=== PATIENT | male | born 1955 | race Caucasian/White ===

== ENCOUNTER 2017-04-20 08:30 | Observation (INO) ==
--- OUTSIDE RECORDS SUMMARY | 2017-04-20 09:02 | External Medical Summary | Referral Summary ---
:1955 Author Organization [facility] Address [address] [place] [address] Care Team Providers Name Role Phone De La CruzJt mills Primary Care Physician Encounter VC Date(s): 07/30/15 - 07/30/15 [facility] [address] [place] [address]- [phone] Discharge Diagnosis: Spinal stenosis of lumbar region (disorder) Discharge Diagnosis: Lumbar disc herniation Discharge Diagnosis: Low back pain (finding) Discharge Diagnosis: Disc degeneration, lumbar Discharge Diagnosis: Lumbosacral spondylosis without myelopathy (disorder) Discharge Disposition: 01-Home or Self Care Attending Physician: Noe Null Admitting Physician: Noe Null Vital Signs Most recent to oldest [Reference Range]: 1 Blood Pressure [90-140/60-90 mmHg] 134/82 mmHg (07/30/15 7:53 AM) Problem List Condition Effective Dates Status Health Status Informant Acquired spondylolisthesis Active (disorder)(Confirmed) Allergic rhinitis(Confirmed) Active Hay fever(Confirmed) Active DDD (degenerative disc 2010 Active disease)(Confirmed) Disc degeneration, lumbar(Confirmed) Active Left L4-5/L5-S1 Facet(Confirmed) 05/28/13 Active High cholesterol(Confirmed) Active Hyperlipidemia(Confirmed) Active Hypertension(Confirmed) Active Irregular heart rhythm(Confirmed)1 Active Low back pain (finding)(Confirmed) Active Lumbar spondylosis(Confirmed) Active Lumbosacral radiculopathy(Confirmed) Active Lumbosacral spondylosis without Active myelopathy (disorder)(Confirmed) Lumbar disc herniation(Confirmed) Active Spinal stenosis of lumbar region 2010 Active (disorder)(Confirmed) 1sees Dr. Rizzo Allergies, Adverse Reactions, Alerts Substance Reaction Severity Status niacin Active oxyCODONE DIZZY Active Medications atenolol 50 mg oral tablet 50 mg 1 tabs, Oral, Daily, # 90 tabs, 3 Refill(s), Pharmacy: [facility], 1 tabsOral Daily Start Date: 06/03/15 Status: Orderedatenolol-chlorthalidone 50 mg-25 mg oral tablet See Instructions, 0.5 tabs Oral Daily., # 45 tabs, 3 Refill(s), Pharmacy: [facility] Start Date: 06/03/15 Status: OrderedFish Oil 1,000 mg, Oral, Daily, 0 Refill(s) Start Date: 12/13/13 Status: Orderedfolic acid 1 mg, Oral, Daily, 0 Refill(s) Start Date: 03/27/14 Status: Orderedglucosamine 500 mg, Oral, Daily, 0 Refill(s) Start Date: 03/27/14 Status: Orderedmeloxicam 15 mg oral tablet 15 mg 1 tabs, Oral, Daily, # 90 tabs, 3 Refill(s), Pharmacy: [facility], 1 tabsOral Daily Start Date: 06/03/15 Status: Orderedmultivitamin 1 tabs, Oral, Daily, 0 Refill(s) Start Date: 12/13/13 Status: Orderedsaw palmetto oral capsule 80 mg, Oral, Daily, 0 Refill(s) Start Date: 12/13/13 Status: Orderedsimvastatin 40 mg oral tablet 40 mg 1 tabs, Oral, Bedtime (once a day), # 90 tabs, 3 Refill(s), Pharmacy: [facility], 1 tabs Oral Bedtime (once a day) Start Date: 06/03/15 Status: Ordered Results No data available for this section Immunizations Vaccine Date Refusal Reason tetanus/diphth/pertuss (Tdap) adult/adol 12/15/07 influenza virus vaccine, live 02/08/13 pneumococcal 13-valent conjugate vaccine 12/02/14 tetanus-diphth toxoids (Td) adult/adol 06/12/94 zoster vaccine live 12/02/14 Procedures Procedure Date Related Diagnosis Body Site Left L3-S1 Medial Branch Block with Differential 07/21/15 Left L3-S1 Medial Branch Block 07/09/15 Left L4-5/L5-S1 Facet 04/16/15 Left L4-5 Translaminar 02/20/15 Left L4-5 Translaminar 04/03/13 Repair of umbilical hernia 2012 L4-5 Translaminar 2010 RT Knee torn meniscus repair 2011 Colonoscopy 2006 Left Knee torn meniscus repair 2006 Bilateral Carpal tunnel release 2002 release of ulnar nerve 2002 Vasectomy 1976 Circumcision1 53 Hernia repair 1Birth Social History Social History Type Response Smoking Status Never smoker Assessment and Plan Extracted from: Title: Office Visit Note Author: Noe Null Date: 07/30/15 Assessment/Plan Disc degeneration, lumbar Low back pain (finding) Lumbar disc herniation Lumbosacral spondylosis without myelopathy (disorder) Spinal stenosis of lumbar region (disorder) I did discuss this patient's care with Dr. Lopez.I did review his previous lumbar spine MRI and x-rays as well as his hip x-ray results. He does have multiple levels from L3 4 through L5-S1 of deg enerative discs and disc herniations as well as facet arthropathy with spinal stenosis. Although he's had some episodes of pain down the back of his left leg it does not go to the knee and does not go all the way down his leg like the sciatica he had before. It is possible this could still be referred pain from the facet joints. He had great results from his left L3 to S1 medial branch blocks no ting 80 to 100 percent relief for several days even after the medial branch block. He continues exercise and stretching. He's been on anti- inflammatories. Dr. Lopez recommends proceeding with a left L3 to S1 radiofrequency ablation. He does understand the rationale for the procedure possible complications including that of neuralgia and he voiced unders tanding and wishes to proceed. He wishes to proceed with a local. Assuming he improves he will follow-up here in a couple of months following his radiofrequency ablation. He will follow-up sooner if needed. We did discuss if he has some persisting pain or has wor sening symptoms down his left leg may need consider further treatment for radiculopathy in the future. He voices understanding and agrees to the above plans. The above was in discussion with Dr. Lopez.
--- OUTSIDE RECORDS SUMMARY | 2017-04-20 09:02 | External Medical Summary | Referral Summary ---
:1955 Author Organization [facility], [facility] Address [address] [place] [address] [place] [address] Care Team Providers Name Role Phone Jt De La Cruz Primary Care Physician Encounter VC Date(s): 12/02/14 - 12/02/14 [facility] [address] [place] [address]- [place] Discharge Diagnosis: Need for pneumococcal vaccination Discharge Diagnosis: Need for zoster vaccine Discharge Disposition: 01-Home or Self Care Attending Physician: Jt De La Cruz MD Admitting Physician: Jt De La Cruz MD Vital Signs Most recent to oldest [Reference Range]: 1 Peripheral Pulse Rate [60-100 bpm] 72 bpm (12/02/14 3:02 PM) Blood Pressure [90-140/60-90 mmHg] 104/72 mmHg (12/02/14 3:02 PM) Problem List Condition Effective Dates Status Health Status Informant Acquired spondylolisthesis Active (disorder)(Confirmed) Allergic rhinitis(Confirmed) Active Hay fever(Confirmed) Active DDD (degenerative disc 2010 Active disease)(Confirmed) Left L4-5/L5-S1 Facet(Confirmed) 05/28/13 Active High cholesterol(Confirmed) Active Hyperlipidemia(Confirmed) Active Hypertension(Confirmed) Active Irregular heart rhythm(Confirmed)1 Active Low back pain (finding)(Confirmed) Active Lumbar spondylosis(Confirmed) Active Lumbosacral radiculopathy(Confirmed) Active Lumbosacral spondylosis without Active myelopathy (disorder)(Confirmed) Spinal stenosis of lumbar region 2010 Active (disorder)(Confirmed) 1sees Dr. Rizzo Allergies, Adverse Reactions, Alerts Substance Reaction Severity Status niacin Active oxyCODONE DIZZY Active Medications atenolol 50 mg oral tablet 50 mg 1 tabs, Oral, Daily, # 90 tabs, 3 Refill(s), Pharmacy: [facility], 1 tabsOral Daily Start Date: 06/03/15 Status: Orderedatenolol-chlorthalidone 50 mg-25 mg oral tablet See Instructions, 0.5 tabs Oral Daily., # 45 tabs, 3 Refill(s), Pharmacy: [facility] Start Date: 06/03/15 Status: OrderedFish Oil 1,000 mg, Oral, Daily, 0 Refill(s) Start Date: 12/13/13 Status: Orderedfolic acid 1 mg, Oral, Daily, 0 Refill(s) Start Date: 03/27/14 Status: Orderedglucosamine 500 mg, Oral, Daily, 0 Refill(s) Start Date: 03/27/14 Status: Orderedmeloxicam 15 mg oral tablet 15 mg 1 tabs, Oral, Daily, # 90 tabs, 3 Refill(s), Pharmacy: [facility], 1 tabsOral Daily Start Date: 06/03/15 Status: Orderedmultivitamin 1 tabs, Oral, Daily, 0 Refill(s) Start Date: 12/13/13 Status: Orderedsaw palmetto oral capsule 80 mg, Oral, Daily, 0 Refill(s) Start Date: 12/13/13 Status: Orderedsimvastatin 40 mg oral tablet 40 mg 1 tabs, Oral, Bedtime (once a day), # 90 tabs, 3 Refill(s), Pharmacy: [facility], 1 tabs Oral Bedtime (once a day) Start Date: 06/03/15 Status: Ordered Results Hematology Most recent to oldest [Reference Range]: 1 WBC [4.8-10.8 10*3/uL] 5.5 10*3/uL (12/02/14 4:00 PM) RBC [4.60-6.20 10*6/uL] 4.86 10*6/uL (12/02/14 4:00 PM) Hgb [14.0-18.0 gm/dL] 14.5 gm/dL (12/02/14 4:00 PM) Hct [42.0-52.0 %] 41.8 % *LOW* (12/02/14 4:00 PM) MCV [82.0-99.0 fL] 86.0 fL (12/02/14 4:00 PM) MCH [27.0-32.0 pg] 29.8 pg (12/02/14 4:00 PM) MCHC [32.0-36.0 gm/dL] 34.7 gm/dL (12/02/14 4:00 PM) RDW [11.5-14.5 %] 12.9 % (12/02/14 4:00 PM) Platelet [150-400 10*3/uL] 248 10*3/uL (12/02/14 4:00 PM) MPV [8.8-14.8 fL] 10.9 fL (12/02/14 4:00 PM) Immature Granulocytes [0.0-1.0 %] 0.2 % (12/02/14 4:00 PM) Neutrophils [51-75 %] 61 % (12/02/14 4:00 PM) Lymphocytes [20-46 %] 24 % (12/02/14 4:00 PM) Monocytes [4-11 %] 12 % *HI* (12/02/14 4:00 PM) Eosinophils [0-4 %] 3 % (12/02/14 4:00 PM) Basophils [0-2 %] 0 % (12/02/14 4:00 PM) Neutro Absolute [1.90-7.00 10*3] 3.37 10*3 (12/02/14 4:00 PM) Lymph Absolute [0.80-3.30 10*3] 1.29 10*3 (12/02/14 4:00 PM) Greenlee Absolute [0.30-1.00 10*3] 0.65 10*3 (12/02/14 4:00 PM) Eos Absolute [0.00-0.50 10*3] 0.17 10*3 (12/02/14 4:00 PM) Baso Absolute [0.00-0.20 10*3] 0.01 10*3 (12/02/14 4:00 PM) Chemistry Most recent to oldest [Reference Range]: 1 Sodium Lvl [135-144 mEq/L] 137 mEq/L (12/02/14 4:00 PM) Potassium Lvl [3.5-5.2 mEq/L] 3.7 mEq/L (12/02/14 4:00 PM) Chloride [99-111 mEq/L] 98 mEq/L *LOW* (12/02/14 4:00 PM) CO2 [23-31 mEq/L] 31 mEq/L (12/02/14 4:00 PM) AGAP [3-20] 8 (12/02/14 4:00 PM) BUN [8-26 mg/dL] 11 mg/dL (12/02/14 4:00 PM) Glucose Lvl [70-99 mg/dL] 100 mg/dL *HI* (12/02/14 4:00 PM) Creatinine Lvl [0.72-1.25 mg/dL] 0.80 mg/dL (12/02/14 4:00 PM) eGFR [>60 mL/min] >60 mL/min 1 (12/02/14 4:00 PM) Calcium Lvl [8.9-10.5 mg/dL] 10.2 mg/dL (12/02/14 4:00 PM) Albumin Lvl [3.4-4.8 gm/dL] 4.5 gm/dL (12/02/14 4:00 PM) Total Protein [6.2-8.1 gm/dL] 6.8 gm/dL (12/02/14 4:00 PM) Globulin [1.8-4.0 gm/dL] 2.3 gm/dL (12/02/14 4:00 PM) ALT [0-55 U/L] 25 U/L (12/02/14 4:00 PM) AST [5-34 U/L] 29 U/L (12/02/14 4:00 PM) Alk Phos [40-150 U/L] 59 U/L (12/02/14 4:00 PM) Bili Total [0.2-1.2 mg/dL] 1.1 mg/dL (12/02/14 4:00 PM) Chol [0-199 mg/dL] 171 mg/dL (12/02/14 4:00 PM) Trig [0-149 mg/dL] 108 mg/dL (12/02/14 4:00 PM) HDL [40-84 mg/dL] 43 mg/dL (12/02/14 4:00 PM) LDL [0-130 mg/dL] 106 mg/dL (12/02/14 4:00 PM) VLDL Cholesterol [0-28 mg/dL] 22 mg/dL (12/02/14 4:00 PM) Cardiac Risk [0.0-5.7] 4.0 (12/02/14 4:00 PM) Hgb A1c [4.1-5.6 %] 6.2 % *HI* (12/02/14 4:00 PM) eAvg Glucose 131.2 mg/dL (12/02/14 4:00 PM) 1Result Comment: Multiply eGFR results by 1.21 for race. Immunizations Vaccine Date Refusal Reason tetanus/diphth/pertuss (Tdap) adult/adol 12/15/07 influenza virus vaccine, live 02/08/13 pneumococcal 13-valent conjugate vaccine 12/02/14 tetanus-diphth toxoids (Td) adult/adol 06/12/94 zoster vaccine live 12/02/14 Procedures Procedure Date Related Diagnosis Body Site Left L4-5/L5-S1 Facet 04/16/15 Left L4-5 Translaminar 02/20/15 Collection of venous blood by venipuncture 12/02/14 Left L4-5 Translaminar 04/03/13 Repair of umbilical hernia 2012 L4-5 Translaminar 2010 RT Knee torn meniscus repair 2010 Colonoscopy 2006 Left Knee torn meniscus repair 2006 Bilateral Carpal tunnel release 2002 release of ulnar nerve 2002 Vasectomy 1976 Circumcision1 53 Hernia repair 1Birth Social History Social History Type Response Smoking Status Never smoker Assessment and Plan Extracted from: Title: Ambulatory Patient Education Author: Jt De La Cruz MD Date: 12/05/14 Allergy Allergies Allergies may happen from anything your body is sensitive to. This may be food , medicines, pollens, chemicals, and nearly anything around you in everyday life that produces allergens. An allergen is any thing that causes an allergy producing substance. Heredity is often a factor in causing these problems. This means you may have some of the same allergies as your parents. Food allergies happen in all age groups. Food allergies are some of the most severe and life threatening. Some common food allergies are cow's milk, seafood , eggs, nuts, wheat, and soybeans. SYMPTOMS Swelling around the mouth. An itchy red rash or hives. Vomiting or diarrhea. Difficulty breathing. SEVERE ALLERGIC REACTIONS ARE LIFE-THREATENING. This reaction is called anaphylaxis. It can cause the mouth and throat to swell and cause difficulty with breathing and swallowing. In severe reactions only a trace amount of food (for example, peanut oil in a salad) may cause within seconds. Seasonal allergies occur in all age groups. These are seasonal because they usually occur during the same season every year. They may be a reaction to molds , grass pollens, or tree pollens. Other causes of problems are house dust mite allergens, pet dander, and mold spores. The symptoms often consist of nasal congestion, a runny itchy nose associated with sneezing, and tearing itchy eyes. There is oft en an associated itching of the mouth and ears. The problems happen when you come in contact with pollens and other allergens. Allergens are the particles in the air that the body reacts to with an alex rgic reaction. This causes you to release allergic antibodies. Through a chain of events, these eventually cause you to release histamine into the blood stream. Although it is meant to be protective to the body, it is this release that causes your discomfort. This is why you were given anti-histamines to feel better. If you are unable to pinpoint the offending allergen, it may be determined by skin or blood testing. Allergies cannot be cured but can be controlled with medicine. Hay fever is a collection of all or some of the seasonal allergy problems. It may often be treated with simple rlbo-fqr-vbykttu medicine such as diphenhydramine. Take medicine as directed. Do not drink alcohol or drive while taking this medicine. Check with your caregiver or package insert for child dosages. If these medicines are not effective, there are many new medicines your caregiver can prescribe. Stronger medicine such as nasal spray, eye drops, and corticosteroids may be used if the first things you try do not work well. Other treatments such as immunotherapy or desensitizing injections can be used if all else fails. Follow up with your caregiver if problems continue. These seasonal allergies are usually not life threatening. They are generally more of a nuisance that can often be handled using medicine. HOME CARE INSTRUCTIONS If unsure what causes a reaction, keep a diary of foods eaten and symptoms that follow. Avoid foods that cause reactions. If hives or rash are present: Take medicine as directed. You may use an nrdg-sgt-zuxmvrp antihistamine (diphenhydramine) for hives and itching as needed. Apply cold compresses (cloths) to the skin or take baths in cool water. Avoid hot baths or showers. Heat will make a rash and itching worse. If you are severely allergic: Following a treatment for a severe reaction, hospitalization is often required for closer follow-up. Wear a medic-alert bracelet or necklace stating the allergy. You and your family must learn how to give adrenaline or use an anaphylaxis kit. If you have had a severe reaction, always carry your anaphylaxis kit or EpiPen with you. Use this medicine as directed by your caregiver if a severe reaction is occurring. Failure to do so could have a fatal outcome. SEEK MEDICAL CARE IF: You suspect a food allergy. Symptoms generally happen within 30 minutes of eating a food. Your symptoms have not gone away within 2 days or are getting worse. You develop new symptoms. You want to retest yourself or your child with a food or drink you think causes an allergic reaction. Never do this if an anaphylactic reaction to that food or drink has happened before. Only do this under the care of a caregiver. SEEK IMMEDIATE MEDICAL CARE IF: You have difficulty breathing, are wheezing, or have a tight feeling in your chest or throat. You have a swollen mouth, or you have hives, swelling, or itching all over your body. You have had a severe reaction that has responded to your anaphylaxis kit or an EpiPen. These reactions may return when the medicine has worn off. These reactions should be considered life threatening. MAKE SURE YOU: Understand these instructions. Will watch your condition. Will get help right away if you are not doing well or get worse. Document Released: 07/12/2003 Document Revised: 08/13/2013 Document Reviewed: 12/16/2008 ExitCare Patient Information 2015 [employer] [facility], [facility]. This information is not intended to replace advice given to you by your health care provider. Make sure you discuss any questions you have with your health care provider. No follow up information was provided. Extracted from: Title: Office Visit Note Author: Jt De La Cruz MD Date: 12/02/14 Assessment/Plan Acquired spondylolisthesis (disorder) Will continue with the current medications. Lab to be completed. Ordered: Office Visit Level 4 Est 90123 DDD (degenerative disc disease) Ordered: Office Visit Level 4 Est 29403 Hay fever Ordered: Office Visit Level 4 Est 26208 High cholesterol Ordered: Office Visit Level 4 Est 14926 Hypertension Ordered: Office Visit Level 4 Est 16473 Need for pneumococcal vaccination Ordered: Office Visit Level 4 Est 87792 Need for zoster vaccine Ordered: Office Visit Level 4 Est 45995 Spinal stenosis of lumbar region (disorder) Ordered: Office Visit Level 4 Est 34484
--- OUTSIDE RECORDS SUMMARY | 2017-04-20 09:02 | External Medical Summary | Referral Summary ---
:1955 Author Organization [facility] Address [address] [place] [address] Care Team Providers Name Role Phone JonoJt Primary Care Physician Encounter VC Date(s): 07/21/15 - 07/21/15 [facility] [address] [place] [address]- [phone] Discharge Diagnosis: Lumbar spondylosis Discharge Disposition: 01-Home or Self Care Attending Physician: Bhavesh Lopez MD Admitting Physician: Bhavesh Lopez MD Vital Signs Most recent to oldest [Reference Range]: 1 Peripheral Pulse Rate [60-100 bpm] 68 bpm (07/21/15 10:27 AM) Respiratory Rate [14-20 br/min] 19 br/min (07/21/15 10:27 AM) Blood Pressure [90-140/60-90 mmHg] 124/88 mmHg (07/21/15 10:27 AM) SpO2 96 % (07/21/15 10:27 AM) Problem List Condition Effective Dates Status [...] Daily, # 90 tabs, 3 Refill(s), Pharmacy: [facility], 1 tabsOral Daily Start Date: 06/03/15 Status: Orderedatenolol-chlorthalidone 50 mg-25 mg oral tablet See Instructions, 0.5 tabs Oral Daily., # 45 tabs, 3 Refill(s), Pharmacy: [facility] Start Date: 06/03/15 Status: OrderedFish Oil 1,000 mg, Oral, Daily, 0 Refill(s) Start Date: 12/13/13 Status: Orderedfolic acid 1 mg, Oral, Daily, 0 Refill(s) Start Date: 03/27/14 Status: Orderedglucosamine 500 mg, Oral, Daily, 0 Refill(s) Start Date: 03/27/14 Status: Orderedmeloxicam 15 mg oral tablet 15 mg 1 tabs, Oral, Daily, # 90 tabs, 3 Refill(s), Pharmacy: [facility], 1 tabsOral Daily Start Date: 06/03/15 Status: Orderedmultivitamin 1 tabs, Oral, Daily, 0 Refill(s) Start Date: 12/13/13 Status: Orderedsaw palmetto oral capsule 80 mg, Oral, Daily, 0 Refill(s) Start Date: 12/13/13 Status: Orderedsimvastatin 40 mg oral tablet 40 mg 1 tabs, Oral, Bedtime (once a day), # 90 tabs, 3 Refill(s), Pharmacy: [facility], 1 tabs Oral Bedtime (once a day) Start Date: 06/03/15 Status: Ordered Results No data available for this section Immunizations Vaccine Date Refusal Reason tetanus/diphth/pertuss (Tdap) adult/adol 12/15/07 influenza virus vaccine, live 02/08/13 pneumococcal 13-valent conjugate vaccine 12/02/14 tetanus-diphth toxoids (Td) adult/adol 06/12/94 zoster vaccine live 12/02/14 Procedures Procedure Date Related Diagnosis Body Site Injection(s), diagnostic or therapeutic agent, 07/21/15 paravertebral facet (zygapophyseal) joint (or nerves innervating that joint) with image guidance (fluoroscopy or CT), lumbar or sacral; second level (List separately in addition to code for primary procedure) Injection(s), diagnostic or therapeutic agent, 07/21/15 paravertebral facet (zygapophyseal) joint (or nerves innervating that joint) with image guidance (fluoroscopy or CT), lumbar or sacral; second level (List separately in addition to code for primary procedure) Injection(s), diagnostic or therapeutic agent, 07/21/15 paravertebral facet (zygapophyseal) joint (or nerves innervating that joint) with image guidance (fluoroscopy or CT), lumbar or sacral; single level.. Left L3-S1 Medial Branch Block with Differential [...] Smoking Status Never smoker Assessment and Plan No data available for this section
--- OUTSIDE RECORDS SUMMARY | 2017-04-20 09:02 | External Medical Summary | Referral Summary ---
:1955 Author Organization [facility] Address [address] [place] [address] [place] [address] Care Team Providers Name Role Phone Jt De La Cruz Primary Care Physician Encounter VC Date(s): 09/22/15 - 09/22/15 [facility] [address] [place] [address] [place] [phone] - Discharge Diagnosis: Bilateral sensorineural hearing loss Discharge Disposition: 01-Home or Self Care Attending Physician: Mone Henry Admitting Physician: Darek Salazar MD Referring Physician: Jt De La Cruz MD Vital Signs No data available for this section Problem List Condition Effective Dates Status Health [...] Daily, # 90 tabs, 3 Refill(s), [facility]acy: [facility], 1 tabsOral Daily Start Date: 06/03/15 Status: Orderedatenolol-chlorthalidone 50 mg-25 mg oral tablet See Instructions, 0.5 tabs Oral Daily., # 45 tabs, 3 Refill(s), Pharmacy: [facility] Start Date: 06/03/15 Status: OrderedFish Oil 1,000 mg, Oral, Daily, 0 Refill(s) Start Date: 12/13/13 Status: Orderedfolic acid 1 mg, Oral, Daily, 0 Refill(s) Start Date: 03/27/14 Status: Orderedglucosamine 500 mg, Oral, Daily, 0 Refill(s) Start Date: 03/27/14 Status: Orderedmeloxicam 15 mg oral tablet 15 mg 1 tabs, Oral, Daily, # 90 tabs, 3 Refill(s), Pharmacy: [facility], 1 tabsOral Daily Start Date: 06/03/15 Status: Orderedmultivitamin 1 tabs, Oral, Daily, 0 Refill(s) Start Date: 12/13/13 Status: Orderedsaw palmetto oral capsule 80 mg, Oral, Daily, 0 Refill(s) Start Date: 12/13/13 Status: Orderedsimvastatin 40 mg oral tablet 40 mg 1 tabs, Oral, Bedtime (once a day), # 90 tabs, 3 Refill(s), Pharmacy: [facility], 1 tabs Oral Bedtime (once a day) Start Date: 06/03/15 Status: Ordered Results No data available for this section Immunizations Vaccine Date Refusal Reason tetanus/diphth/pertuss (Tdap) adult/adol 12/15/07 influenza virus vaccine, live 02/08/13 pneumococcal 13-valent conjugate vaccine 12/02/14 tetanus-diphth toxoids (Td) adult/adol 06/12/94 zoster vaccine live 12/02/14 Procedures Procedure Date Related Diagnosis Body Site Left L3-S1 Radiofrequency 08/20/15 Left L3-S1 Medial Branch Block with Differential [...]
--- OUTSIDE RECORDS SUMMARY | 2017-04-20 09:02 | External Medical Summary | Referral Summary ---
:1955 Author Organization [facility] Address [address] [place] [address] Care Team Providers Name Role Phone JonoJt Primary Care Physician Encounter VC Date(s): 06/30/15 - 06/30/15 [facility] [address] [place] [address]- [phone] Discharge Diagnosis: Spinal stenosis of lumbar region (disorder) Discharge Diagnosis: Lumbar disc herniation Discharge Diagnosis: Lumbosacral spondylosis without myelopathy (disorder) Discharge Diagnosis: Low back pain (finding) Discharge Diagnosis: Disc degeneration, lumbar Discharge Disposition: 01-Home or Self Care Attending Physician: Noe Null Admitting Physician: Noe Null Vital Signs Most recent to oldest [Reference Range]: 1 Temperature Tympanic [36.6-38.1 degC] 36.5 degC *LOW* (06/30/15 3:13 PM) Blood Pressure [90-140/60-90 mmHg] 120/76 mmHg (06/30/15 3:13 PM) Problem List Condition Effective Dates Status Health Status Informant Acquired spondylolisthesis Active (disorder)(Confirmed) Allergic rhinitis(Confirmed) Active Hay fever(Confirmed) Active DDD (degenerative disc 2011 Active disease)(Confirmed) Disc degeneration, lumbar(Confirmed) Active Left [...] Daily, # 90 tabs, 3 Refill(s), Pharmacy: [facility], 1 tabsOral Daily Start Date: 06/03/15 Status: Orderedatenolol-chlorthalidone 50 mg-25 mg oral tablet See Instructions, 0.5 tabs Oral Daily., # 45 tabs, 3 Refill(s), Pharmacy: [facility] Start Date: 06/03/15 Status: OrderedFish Oil 1,000 mg, Oral, Daily, 0 Refill(s) Start Date: 12/13/13 Status: Orderedfolic acid 1 mg, Oral, Daily, 0 Refill(s) Start Date: 03/27/14 Status: Orderedglucosamine 500 mg, Oral, Daily, 0 Refill(s) Start Date: 03/27/14 Status: Orderedmeloxicam 15 mg oral tablet 15 mg 1 tabs, Oral, Daily, # 90 tabs, 3 Refill(s), Pharmacy: [facility], 1 tabsOral Daily Start Date: 06/03/15 Status: Orderedmultivitamin 1 tabs, Oral, Daily, 0 Refill(s) Start Date: 12/13/13 Status: Orderedsaw palmetto oral capsule 80 mg, Oral, Daily, 0 Refill(s) Start Date: 12/13/13 Status: Orderedsimvastatin 40 mg oral tablet 40 mg 1 tabs, Oral, Bedtime (once a day), # 90 tabs, 3 Refill(s), Pharmacy: [facility], 1 tabs Oral Bedtime (once a day) [...] Office Visit Note Author: Noe Null Date: 06/30/15 Assessment/Plan Disc degeneration, lumbar Low back pain (finding) Lumbar disc herniation Lumbosacral spondylosis without myelopathy (disorder) Spinal stenosis of lumbar region (disorder) Dr. Lopez and I did review his MRI and x-ray results. I did discuss these with the patient in detail using the spinal model and have also shown him his films. He was provided copies of these reports . He did have findings of L3 4 severe disc space narrowingwith the mild retrolisthesis disc bulgingseverestenosis of the spinal canalmoderate stenosis of the foramen bilaterally. L4 5 disc b ulge degenerative disc severe stenosis of the spinal canal which has worsened since 2013 with moderate narrowing of the left foramen and mild to moderate narrowing of the right foramen. L5-S1 mild dis c space narrowing with an annular tearsmall posterior central disc herniation which is new compared to the prior MRI with mild narrowing of the foramen bilaterally. We discussed that clinically although he has spinal stenosis that issevere withannular tear and a small disc herniation new at L5-S1 that clinically he really does not appear to have any discogenic painor radiculopathy. He still clinically appears to have mainly mechanical pain symptoms. He did have a significant improvement from the facet injection for a week but his symptoms recurred. Brittany garcia has continued his home exercises and stretches. He's been on anti- inflammatories on a long-term basis. Dr. Lopez recommends proceeding with a left L3 to S1 medial branch block twice as a diagnostic tests. He understands the rationale for the procedure possible complications and he wishes to proceed. We discussedthat this is just a test Precursor to radiofrequency ablation. He'll follow-up here in a week following his medial branch block sooner if needed. He does not want to consider any surgical interventions.He clinically does not appear to have any radiculopathy at this time. He voiced understanding and agrees to the above plans. Physical exam findings history present illness recommendations are performed with an agreement with Dr. Yoder findings.
--- OUTSIDE RECORDS SUMMARY | 2017-04-20 09:02 | External Medical Summary | Referral Summary ---
:1955 Author Organization [facility] Address [address] [place] [address] Care Team Providers Name Role Phone JonoJt Primary Care Physician Encounter VC Date(s): 04/04/15 - 04/04/15 [facility] [address] [place] [address]- [phone] Discharge Diagnosis: Spinal stenosis of lumbar region (disorder) Discharge Diagnosis: Low back pain (finding) Discharge Diagnosis: Lumbar disc herniation Discharge Diagnosis: Lumbosacral spondylosis without myelopathy (disorder) Discharge Disposition: 01-Home or Self Care Attending Physician: Noe Null Admitting Physician: Noe Null Vital Signs Most recent to oldest [Reference Range]: 1 Blood Pressure [90-140/60-90 mmHg] 112/78 mmHg (04/04/15 7:51 AM) Problem List Condition Effective Dates Status Health Status Informant Acquired spondylolisthesis Active (disorder)(Confirmed) Allergic rhinitis(Confirmed) Active Hay fever(Confirmed) Active DDD (degenerative disc 2010 Active disease)(Confirmed) Left L4-5/L5-S1 Facet(Confirmed) 05/28/13 Active High cholesterol(Confirmed) Active Hyperlipidemia(Confirmed) Active Hypertension(Confirmed) Active Irregular heart rhythm(Confirmed)1 Active Low back pain (finding)(Confirmed) Active Lumbosacral radiculopathy(Confirmed) Active Lumbosacral spondylosis without Active myelopathy (disorder)(Confirmed) Spinal stenosis of lumbar region 2010 Active (disorder)(Confirmed) 1sees Dr. Rizzo Allergies, Adverse Reactions, Alerts Substance Reaction Severity Status niacin Active oxyCODONE DIZZY Active Medications atenolol 50 mg oral tablet 50 mg 1 tabs, Oral, Daily, # 90 tabs, 3 Refill(s), Pharmacy: [facility], 1 tabs Oral Daily Start Date: 12/18/14 Status: Orderedatenolol-chlorthalidone 50 mg-25 mg oral tablet See Instructions, 0.5 tabs Oral Daily. Fax to [facility] , # 45 tabs, 3 Refill(s), Pharmacy: [facility] Start Date: 12/27/14 Status: OrderedFish Oil 1,000 mg, Oral, Daily, 0 Refill(s) Start Date: 12/13/13 Status: Orderedfolic acid 1 mg, Oral, Daily, 0 Refill(s) Start Date: 03/27/14 Status: Orderedglucosamine 500 mg, Oral, Daily, 0 Refill(s) Start Date: 03/27/14 Status: Orderedmeloxicam 15 mg oral tablet 15 mg 1 tabs, Oral, Daily, Fax to , # 90 tabs, 3 Refill(s), Pharmacy: [facility], 1 tabs Oral Daily,Instr:Fax to Start Date: 12/27/14 Status: Orderedmultivitamin 1 tabs, Oral, Daily, 0 Refill(s) Start Date: 12/13/13 Status: Orderedsaw palmetto oral capsule 80 mg, Oral, Daily, 0 Refill(s) Start Date: 12/13/13 Status: Orderedsimvastatin 40 mg oral tablet 40 mg 1 tabs, Oral, Bedtime (once a day), # 90 tabs, 3 Refill(s), Pharmacy: [facility],1 tabs Oral Bedtime (once a day) Start Date: 12/18/14 Status: Ordered Results No data available for this section Immunizations Vaccine Date Refusal Reason tetanus/diphth/pertuss (Tdap) adult/adol 12/15/07 influenza virus vaccine, live 02/08/13 pneumococcal 13-valent conjugate vaccine 12/02/14 tetanus-diphth toxoids (Td) adult/adol 06/12/94 zoster vaccine live 12/02/14 Procedures Procedure Date Related Diagnosis Body Site Left L4-5 Translaminar 02/20/15 Left L4-5 Translaminar [...] Office Visit Note Author: Noe Null Date: 04/04/15 Assessment/Plan Low back pain (finding) Lumbar disc herniation Lumbosacral spondylosis without myelopathy (disorder) Spinal stenosis of lumbar region (disorder) I discussed this patient's care with Dr. Lopez. I did review his previous lumbar spine MRI from 03/14/2013. He has multiple levels of facet arthropathy. He did have a disc herniation at L4 5 with moderate left foraminal narrowing moderate central stenosis, disc herniation L3 4 and moderate to severe central stenosis and moderate to severe bilateral foraminal stenosis however his radiculopathy se ems have resolved following his lumbar epidural. He has residual mechanical back pain on the left side and has benefited from previous facet injection the past by at least 50 percent forover a year. Dr. Lopez recommends proceeding withleft L4 5 and L5-S1 facet joint injection. The patient understands the rationale for the procedure possible complications and he wishes to proceed. He requests a local. He will follow-up here in 2 months following his injection assuming he improves. He'll follow-up sooner if needed. We did discuss that if for some reason he does not improve he would call back and make arrangements for new lumbar spine investigations and a sooner follow-up appointment. He voiced understanding and agrees to the above plans. The above was in discussion with Dr. Lopez.
--- OUTSIDE RECORDS SUMMARY | 2017-04-20 09:02 | External Medical Summary | Referral Summary ---
:1955 Author Organization [facility] Address [address] [place] [address] Care Team Providers Name Role Phone Jt De La Cruz Primary Care Physician Encounter VC Date(s): 02/20/16 - 02/24/[address] [address] Discharge Diagnosis: CAD S/P percutaneous coronary angioplasty Discharge Diagnosis: CAD, multiple vessel Discharge Diagnosis: Acute non-ST elevation myocardial infarction (NSTEMI) Discharge Disposition: 01-Home or Self Care Attending Physician: Parker Cespedes MD Admitting Physician: Parker Cespedes MD Vital Signs Most recent to oldest [Reference Range]: 1 Temperature Oral [35.8-37.3 degC] 36.6 degC (02/24/16 4:00 PM) Peripheral Pulse Rate [60-100 bpm] 65 bpm (02/24/16 4:00 PM) Heart Rate Monitored [60-100 bpm] 75 bpm (02/23/16 9:54 PM) Respiratory Rate [14-20 br/min] 17 br/min (02/24/16 4:00 PM) Blood Pressure [90-140/60-90 mmHg] 144/80 mmHg *HI* (02/24/16 4:00 PM) Mean Arterial Pressure, Cuff 111 mmHg (02/23/16 5:00 PM) SpO2 95 % (02/24/16 4:00 PM) Remote Telemetry Ongoing (02/24/16 11:10 AM) Problem List Condition Effective Dates Status Health Status Informant Acquired spondylolisthesis Active (disorder)(Confirmed) Allergic rhinitis(Confirmed) Active Hay fever(Confirmed) Active Cardiac disorder(Confirmed)1 Active DDD (degenerative disc 2011 Active disease)(Confirmed) Disc degeneration, lumbar(Confirmed) Active Left L4-5/L5-S1 Facet(Confirmed) 05/28/13 Active High cholesterol(Confirmed) Active Borderline hyperglycemia(Confirmed) Active Hyperlipidemia(Confirmed) Active Hypertension(Confirmed) Active Impaired skin integrity(Confirmed)2 Active Irregular heart rhythm(Confirmed)3 Active Low back pain (finding)(Confirmed) Active Lumbar spondylosis(Confirmed) Active Lumbosacral radiculopathy(Confirmed) Active Lumbosacral spondylosis without Active myelopathy (disorder)(Confirmed) Lumbar disc herniation(Confirmed) Active Encounter for prostate cancer Active screening(Confirmed) Spinal stenosis of lumbar region 2010 Active (disorder)(Confirmed) Tissue perfusion Active alteration(Confirmed)4 1Problem added automatically by system based on initiation of Cardiac Output/ Ineffective Cardiac Perfusion Plan of [id number] added automatically by system based on initiation of Impaired Skin Integrity Plan of [id number] Dr. [id number] added automatically by system based on initiation of Tissue Perfusion Cerebral Plan of Care Allergies, Adverse Reactions, Alerts Substance Reaction Severity Status niacin Active oxyCODONE DIZZY Active Medications aspirin 81 mg oral delayed release tablet 81 mg 1 tabs, Oral, Daily, # 30 tabs, 0 Refill(s) Start Date: 02/24/16 Status: Orderedatenolol 50 mg oral tablet 50 mg, Oral, Bedtime (once a day), # 30 tabs, 11 Refill(s) Start Date: 02/24/16 Status: OrderedBrilinta 90 mg oral tablet 1 tabs, Oral, BID, # 60 tabs, 11 Refill(s) Start Date: 02/24/16 Status: OrderedFish Oil 2,400 mg, Oral, Bedtime (once a day), 0 Refill(s) Start Date: 12/13/13 Status: Orderedfolic acid 0.8 mg, Oral, Bedtime (once a day), 0 Refill(s) Start Date: 03/27/14 Status: OrderedGlucosamine Chondroitin Advanced oral tablet 1 tabs, Oral, Bedtime (once a day), 0 Refill(s) Start Date: 02/21/16 Status: Orderedibuprofen 400 mg, Oral, Daily, as needed for arthritis, 0 Refill(s) Start Date: 02/21/16 Status: Orderedlisinopril 2.5 mg oral tablet 2.5 mg 1 tabs, Oral, Daily, # 30 tabs, 11 Refill(s) Start Date: 02/24/16 Status: Orderedmeloxicam 15 mg oral tablet 15 mg 1 tabs, Oral, Daily, # 90 tabs, 3 Refill(s), Pharmacy: [facility], 1 tabsOral Daily Start Date: 06/03/15 Status: Orderedmultivitamin 1 tabs, Oral, Bedtime (once a day), 0 Refill(s) Start Date: 12/13/13 Status: OrderedNaphcon-A 1 drops, Eye-Both, BID, Seasonal Allergy Symptoms, 1-2 times daily, 0 Refill(s) Start Date: 02/21/16 Status: Orderednitroglycerin 0.4 mg sublingual tablet 0.4 mg 1 tabs, SubLingual, q5min, Angina/Chest Pain, # 25 tabs, 3 Refill(s) Start Date: 02/24/16 Status: Orderedsaw palmetto oral capsule 450 mg, Oral, Bedtime (once a day), 0 Refill(s) Start Date: 12/13/13 Status: Orderedsimvastatin 40 mg oral tablet 40 mg 1 tabs, Oral, Bedtime (once a day), # 90 tabs, 3 Refill(s), Pharmacy: [facility], 1 tabs Oral Bedtime (once a day) Start Date: 06/03/15 Status: OrderedStopain Extra Strength 1 matias, Topical, QID, as needed for pain, 0 Refill(s) Start Date: 02/21/16 Status: Ordered Results Hematology Most recent to oldest [Reference Range]: 1 WBC [4.8-10.8 10*3/uL] 6.9 10*3/uL (02/24/16 5:08 AM) RBC [4.60-6.20] 5.01 (02/24/16 5:08 AM) Hgb [14.0-18.0 gm/dL] 14.7 gm/dL (02/24/16 5:08 AM) Hct [42.0-52.0 %] 43.6 % (02/24/16 5:08 AM) MCV [82.0-99.0 fL] 87.0 fL (02/24/16 5:08 AM) MCH [27.0-32.0 pg] 29.3 pg (02/24/16 5:08 AM) MCHC [32.0-36.0 gm/dL] 33.7 gm/dL (02/24/16 5:08 AM) RDW [11.5-14.5 %] 13.1 % (02/24/16 5:08 AM) Platelet [150-400 10*3/uL] 176 10*3/uL (02/24/16 5:08 AM) MPV [9.4-12.3 fL] 10.2 fL (02/24/16 5:08 AM) Immature Granulocytes [0.0-1.0 %] 0.1 % (02/21/16 1:28 AM) Neutrophils [51-75 %] 85 % *HI* (02/21/16 1:28 AM) Lymphocytes [20-46 %] 7 % *LOW* (02/21/16 1:28 AM) Monocytes [4-11 %] 8 % (02/21/16 1:28 AM) Eosinophils [0-4 %] 0 % (02/21/16 1:28 AM) Basophils [0-2 %] 0 % (02/21/16 1:28 AM) Neutro Absolute [1.90-7.00 10*3] 7.64 10*3 *HI* (02/21/16 1:28 AM) Lymph Absolute [0.80-3.30 10*3] 0.67 10*3 *LOW* (02/21/16 1:28 AM) [place] Absolute [0.30-1.00 10*3] 0.68 10*3 (02/21/16 1:28 AM) Eos Absolute [0.00-0.50 10*3] 0.03 10*3 (02/21/16 1:28 AM) Baso Absolute [0.00-0.20 10*3] 0.01 10*3 (02/21/16 1:28 AM) Nucleated RBC Automated [0 /100 WBC] 0.0 /100 WBC (02/21/16 1:28 AM) Chemistry Most recent to oldest [Reference Range]: 1 Sodium Lvl [136-144 mEq/L] 139 mEq/L (02/24/16 5:08 AM) Potassium Lvl [3.6-5.1 mEq/L] 4.2 mEq/L 1 (02/24/16 5:08 AM) Chloride [99-109 mEq/L] 106 mEq/L (02/24/16 5:08 AM) CO2 [22-32 mEq/L] 24 mEq/L (02/24/16 5:08 AM) AGAP [3-20] 9 (02/24/16 5:08 AM) BUN [4-20 mg/dL] 9 mg/dL (02/24/16 5:08 AM) Glucose Lvl [70-100 mg/dL] 103 mg/dL *HI* (02/24/16 5:08 AM) Creatinine Lvl [0.64-1.27 mg/dL] 0.67 mg/dL (02/24/16 5:08 AM) eGFR [>60] >60 2 (02/24/16 5:08 AM) Calcium Lvl [8.6-10.0 mg/dL] 9.2 mg/dL (02/24/16 5:08 AM) Albumin Lvl [3.5-4.8 gm/dL] 3.5 gm/dL (02/21/16 1:28 AM) Total Protein [6.1-7.9 gm/dL] 5.9 gm/dL *LOW* (02/21/16 1:28 AM) Globulin [1.9-4.3 gm/dL] 2.4 gm/dL (02/21/16 1:28 AM) ALT [17-63 U/L] 23 U/L (02/21/16 1:28 AM) AST [15-41 U/L] 29 U/L (02/21/16 1:28 AM) Alk Phos [26-104 U/L] 47 U/L (02/21/16 1:28 AM) Bili Total [0.2-1.2 mg/dL] 0.9 mg/dL 3 (02/21/16 1:28 AM) Magnesium Lvl [1.8-2.5 mg/dL] 2.5 mg/dL (02/21/16 1:28 AM) Troponin [<0.06 ng/mL] 0.09 ng/mL 4 *HHI* (02/22/16 5:57 AM) Blood Glucose, Capillary [70-100 mg/dL] 115 mg/dL *HI* (02/24/16 6:39 AM) Chol [0-200 mg/dL] 168 mg/dL (02/21/16 1:28 AM) Trig [0-150 mg/dL] 144 mg/dL (02/21/16 1:28 AM) HDL [>40 mg/dL] 41 mg/dL (02/21/16 1:28 AM) LDL [0-100 mg/dL] 98 mg/dL (02/21/16 1:28 AM) VLDL Cholesterol [0-30 mg/dL] 29 mg/dL (02/21/16 1:28 AM) Cardiac Risk [0.0-5.7] 4.1 (02/21/16 1:28 AM) TSH with Reflex Free T4 [0.35-5.50] 1.10 (02/21/16 1:28 AM) 1Result Comment: Hemolyzed specimen. The following tests may be affected: Potassium. 02/24/2016 06:472Result Comment: Multiply eGFR results by 1.21 for race.3Result Comment: Naproxen, specifically the metabolite O- desmethylnaproxen, may cause spurious elevation in Total Bilirubin levels.4Result Comment: Critical value called, and read-back verified. Called to Jyoti Arora RN F4SE 02/22/2016 06:44Urinalysis Most recent to oldest [Reference Range]: 1 UA Color Yellow (02/23/16 8:07 AM) UA Appear Clear (02/23/16 8:07 AM) UA pH [5.0-8.0] 7.0 (02/23/16 8:07 AM) UA Leuk Est [Negative] Negative (02/23/16 8:07 AM) UA Nitrite [Negative] Negative (02/23/16 8:07 AM) UA Protein [Negative] Negative (02/23/16 8:07 AM) UA Glucose [Negative] Negative (02/23/16 8:07 AM) UA Ketones [Negative] Negative (02/23/16 8:07 AM) UA Urobilinogen [<1.0] Negative (02/23/16 8:07 AM) UA Bili [Negative] Negative (02/23/16 8:07 AM) UA Blood [Negative] Negative (02/23/16 8:07 AM) UA Spec Grav [1.003-1.030] 1.010 (02/23/16 8:07 AM) Type Clean Catch (02/23/16 8:07 AM) Immunizations Vaccine Date Refusal Reason tetanus/diphth/pertuss (Tdap) adult/adol 12/15/07 influenza virus vaccine, live 02/08/13 pneumococcal 13-valent conjugate vaccine 12/02/14 tetanus-diphth toxoids (Td) adult/adol 06/12/94 zoster vaccine live 12/02/14 Procedures Procedure Date Related Diagnosis Body Site Catheterization Heart Coronary Intervention1 02/23/16 Catheterization Left Heart with Coronary 02/23/16 Angiography2 Left L3-S1 Radiofrequency 08/20/15 Left L3-S1 Medial Branch Block with Differential 07/21/15 Left L3-S1 Medial Branch Block 07/09/15 Left L4-5/L5-S1 Facet 04/16/15 Left L4-5 Translaminar 02/20/15 Left L4-5 Translaminar 04/03/13 Repair of umbilical hernia 2012 L4-5 Translaminar 2010 RT Knee torn meniscus repair 2010 Colonoscopy 2006 Left Knee torn meniscus repair 2006 Bilateral Carpal tunnel release 2001 release of ulnar nerve 2001 Vasectomy 1976 Circumcision3 53 Hernia repair 1auto-populated from documented surgical [id number] from documented surgical [id number] Social History Social History Type Response Smoking Status Never smoker Assessment and Plan No data available for this section
--- OUTSIDE RECORDS SUMMARY | 2017-04-20 09:02 | External Medical Summary | Referral Summary ---
:1955 Author Organization [facility] Address [address] [place] [address] Care Team Providers Name Role Phone JonoJt Primary Care Physician Encounter VC Date(s): 07/09/15 - 07/09/15 [facility] [address] [place] [address]- [phone] Discharge Diagnosis: Lumbar spondylosis Discharge Disposition: 01-Home or Self Care Attending Physician: Bhavesh Lopez MD Admitting Physician: Bhavesh Lopez MD Vital Signs Most recent to oldest [Reference Range]: 1 Apical Heart Rate [60-100 bpm] 66 bpm (07/09/15 12:54 PM) Respiratory Rate [14-20 br/min] 16 br/min (07/09/15 12:54 PM) Blood Pressure [90-140/60-90 mmHg] 127/84 mmHg (07/09/15 12:54 PM) SpO2 98 % (07/09/15 12:54 PM) Problem List Condition Effective Dates Status [...] Daily, # 90 tabs, 3 Refill(s), Pharmacy: [facility], 1 tabsOral Daily Start Date: 06/03/15 Status: Orderedatenolol-chlorthalidone 50 mg-25 mg oral tablet See Instructions, 0.5 tabs Oral Daily., # 45 tabs, 3 Refill(s), Pharmacy: [facility] Start Date: 06/03/15 Status: OrderedFish Oil 1,000 mg, Oral, Daily, 0 Refill(s) Start Date: 12/13/13 Status: Orderedfolic acid 1 mg, Oral, Daily, 0 Refill(s) Start Date: 03/27/14 Status: Orderedglucosamine 500 mg, Oral, Daily, 0 Refill(s) Start Date: 03/27/14 Status: Orderedmeloxicam 15 mg oral tablet 15 mg 1 tabs, Oral, Daily, # 90 tabs, 3 Refill(s), Pharmacy: [facility], 1 tabsOral Daily Start Date: 06/03/15 Status: Orderedmultivitamin 1 tabs, Oral, Daily, 0 Refill(s) Start Date: 12/13/13 Status: Orderedsaw palmetto oral capsule 80 mg, Oral, Daily, 0 Refill(s) Start Date: 12/13/13 Status: Orderedsimvastatin 40 mg oral tablet 40 mg 1 tabs, Oral, Bedtime (once a day), # 90 tabs, 3 Refill(s), Pharmacy: [facility], 1 tabs Oral Bedtime (once a day) Start Date: 06/03/15 Status: Ordered Results No data available for this section Immunizations Vaccine Date Refusal Reason tetanus/diphth/pertuss (Tdap) adult/adol 12/15/07 influenza virus vaccine, live 02/08/13 pneumococcal 13-valent conjugate vaccine 12/02/14 tetanus-diphth toxoids (Td) adult/adol 06/12/94 zoster vaccine live 12/02/14 Procedures Procedure Date Related Diagnosis Body Site Injection(s), diagnostic or therapeutic agent, 07/09/15 paravertebral facet (zygapophyseal) joint (or nerves innervating that joint) with image guidance (fluoroscopy or CT), lumbar or sacral; second level (List separately in addition to code for primary procedure) Injection(s), diagnostic or therapeutic agent, 07/09/15 paravertebral facet (zygapophyseal) joint (or nerves innervating that joint) with image guidance (fluoroscopy or CT), lumbar or sacral; second level (List separately in addition to code for primary procedure) Injection(s), diagnostic or therapeutic agent, 07/09/15 paravertebral facet (zygapophyseal) joint (or nerves innervating that joint) with image guidance (fluoroscopy or CT), lumbar or sacral; single level.. Left L3-S1 Medial Branch Block 07/09/15 Left L4-5/L5-S1 Facet 04/16/15 Left L4-5 Translaminar 02/20/15 Left L4-5 Translaminar 04/03/13 Repair of umbilical hernia 2012 L4-5 Translaminar 2010 RT Knee torn meniscus repair 2010 Colonoscopy 2005 Left Knee torn meniscus repair 2005 Bilateral Carpal tunnel release 2002 release of ulnar nerve 2002 Vasectomy 1976 Circumcision1 53 Hernia repair 1Birth Social History Social History Type Response Smoking Status Never smoker Assessment and Plan No data available for this section
--- OUTSIDE RECORDS SUMMARY | 2017-04-20 09:02 | External Medical Summary | Referral Summary ---
:1955 Author Organization [facility] Address [address] [place] [address] Care Team Providers Name Role Phone Jono Jt Ayala Primary Care Physician Encounter VC Date(s): 04/16/15 - 04/16/15 [facility] [address] [place] [address]- [phone] Discharge Diagnosis: Acquired spondylolisthesis (disorder) Discharge Diagnosis: Lumbar spondylosis Discharge Disposition: 01-Home or Self Care Attending Physician: Bhavesh Lopez MD Admitting Physician: Bhavesh Lopez MD Vital Signs Most recent to oldest [Reference Range]: 1 Apical Heart Rate [60-100 bpm] 76 bpm (04/16/15 12:11 PM) Respiratory Rate [14-20 br/min] 16 br/min (04/16/15 12:11 PM) Blood Pressure [90-140/60-90 mmHg] 113/85 mmHg (04/16/15 12:11 PM) SpO2 96 % (04/16/15 12:11 PM) Problem List Condition Effective Dates Status Health Status Informant Acquired spondylolisthesis Active (disorder)(Confirmed) Allergic rhinitis(Confirmed) Active Hay fever(Confirmed) Active DDD (degenerative disc 2011 Active disease)(Confirmed) Left L4-5/L5-S1 Facet(Confirmed) 05/28/13 Active [...] Daily, # 90 tabs, 3 Refill(s), Pharmacy: [facility] Delivery, 1 tabs Oral Daily Start Date: 12/18/14 Status: Orderedatenolol-chlorthalidone 50 mg-25 mg oral tablet See Instructions, 0.5 tabs Oral Daily. Fax to [facility] , # 45 tabs, 3 Refill(s), Pharmacy: [facility] Start Date: 12/27/14 Status: OrderedFish Oil 1,000 mg, Oral, Daily, 0 Refill(s) Start Date: 12/13/13 Status: Orderedfolic acid 1 mg, Oral, Daily, 0 Refill(s) Start Date: 03/27/14 Status: Orderedglucosamine 500 mg, Oral, Daily, 0 Refill(s) Start Date: 03/27/14 Status: Orderedmeloxicam 15 mg oral tablet 15 mg 1 tabs, Oral, Daily, Fax to , # 90 tabs, 3 Refill(s), Pharmacy: [facility], 1 tabs Oral Daily,Instr:Fax to Start Date: 12/27/14 Status: Orderedmultivitamin 1 tabs, Oral, Daily, 0 Refill(s) Start Date: 12/13/13 Status: Orderedsaw palmetto oral capsule 80 mg, Oral, Daily, 0 Refill(s) Start Date: 12/13/13 Status: Orderedsimvastatin 40 mg oral tablet 40 mg 1 tabs, Oral, Bedtime (once a day), # 90 tabs, 3 Refill(s), Pharmacy: [facility] Delivery,1 tabs Oral Bedtime (once a day) Start Date: 12/18/14 Status: Ordered Results No data available for this section Immunizations Vaccine Date Refusal Reason tetanus/diphth/pertuss (Tdap) adult/adol 12/15/07 influenza virus vaccine, live 02/08/13 pneumococcal 13-valent conjugate vaccine 12/02/14 tetanus-diphth toxoids (Td) adult/adol 06/12/94 zoster vaccine live 12/02/14 Procedures Procedure Date Related Diagnosis Body Site Injection(s), diagnostic or therapeutic agent, 04/16/15 paravertebral facet (zygapophyseal) joint (or nerves innervating that joint) with image guidance (fluoroscopy or CT), lumbar or sacral; second level (List separately in addition to code for primary procedure) Injection(s), diagnostic or therapeutic agent, 04/16/15 paravertebral facet (zygapophyseal) joint (or nerves innervating that joint) with image guidance (fluoroscopy or CT), lumbar or sacral; single level.. Left L4-5/L5-S1 Facet 04/16/15 Left L4-5 Translaminar 02/20/15 Left L4-5 Translaminar 04/03/13 Repair of umbilical hernia 2012 L4-5 Translaminar 2010 RT Knee torn meniscus repair 2011 Colonoscopy 2006 Left Knee torn meniscus repair 2006 Bilateral Carpal tunnel release 2001 release of ulnar nerve 2001 Vasectomy 1976 Circumcision1 53 Hernia repair 1Birth Social History Social History Type Response Smoking Status Never smoker Assessment and Plan No data available for this section
--- OUTSIDE RECORDS SUMMARY | 2017-04-20 09:02 | External Medical Summary | Referral Summary ---
:1955 Author Organization [facility] Address [address] [place] [address] Care Team Providers Name Role Phone JonoJt Primary Care Physician Encounter VC Date(s): 02/10/15 - 02/10/15 [facility] [address] [place] [address]- [phone] Discharge Diagnosis: Lumbago Discharge Diagnosis: Lumbar disc herniation Discharge Diagnosis: Spinal stenosis of lumbar region (disorder) Discharge Diagnosis: Lumbar radiculopathy Discharge Disposition: 01-Home or Self Care Attending Physician: Noe Null Admitting Physician: Noe Null Vital Signs Most recent to oldest [Reference Range]: 1 Temperature Oral [35.8-37.3 degC] 36.7 degC (02/10/15 3:09 PM) Blood Pressure [90-140/60-90 mmHg] 128/76 mmHg (02/10/15 3:09 PM) Problem List Condition Effective Dates Status Health Status Informant Acquired spondylolisthesis Active (disorder)(Confirmed) Allergic rhinitis(Confirmed) Active Hay fever(Confirmed) Active DDD (degenerative disc 2010 Active disease)(Confirmed) Left L4-5/L5-S1 Facet(Confirmed) 05/28/13 Active High cholesterol(Confirmed) Active Hyperlipidemia(Confirmed) Active Hypertension(Confirmed) Active Irregular heart rhythm(Confirmed)1 Active Low back pain (finding)(Confirmed) Active Lumbosacral spondylosis without Active myelopathy (disorder)(Confirmed) Spinal stenosis of lumbar region 2010 Active (disorder)(Confirmed) 1sees Dr. Rizzo Allergies, Adverse Reactions, Alerts Substance Reaction Severity Status niacin Active oxyCODONE DIZZY Active Medications atenolol 50 mg oral tablet 50 mg 1 tabs, Oral, Daily, # 90 tabs, 3 Refill(s), Pharmacy: [facility] Delivery, 1 tabs Oral Daily Start Date: 12/18/14 Status: Orderedatenolol-chlorthalidone 50 mg-25 mg oral tablet See Instructions, 0.5 tabs Oral Daily. Fax to [facility] , # 45 tabs, 3 Refill(s), Pharmacy: [facility] Delivery Start Date: 12/27/14 Status: OrderedFish Oil 1,000 mg, Oral, Daily, 0 Refill(s) Start Date: 12/13/13 Status: Orderedfolic acid 1 mg, Oral, Daily, 0 Refill(s) Start Date: 03/27/14 Status: Orderedglucosamine 500 mg, Oral, Daily, 0 Refill(s) Start Date: 03/27/14 Status: Orderedmeloxicam 15 mg oral tablet 15 mg 1 tabs, Oral, Daily, Fax to , # 90 tabs, 3 Refill(s), Pharmacy: [facility] [place] Delivery, 1 tabs Oral Daily,Instr:Fax to Start Date: 12/27/14 Status: Orderedmultivitamin 1 tabs, Oral, Daily, 0 Refill(s) Start Date: 12/13/13 Status: Orderedsaw palmetto oral capsule 80 mg, Oral, Daily, 0 Refill(s) Start Date: 12/13/13 Status: Orderedsimvastatin 40 mg oral tablet 40 mg 1 tabs, Oral, Bedtime (once a day), # 90 tabs, 3 Refill(s), Pharmacy: [facility] [place] Delivery,1 tabs Oral Bedtime (once a day) Start Date: 12/18/14 Status: Ordered Results No data available for this section Immunizations Vaccine Date Refusal Reason tetanus/diphth/pertuss (Tdap) adult/adol 12/15/07 influenza virus vaccine, live 02/08/13 pneumococcal 13-valent conjugate vaccine 12/02/14 tetanus-diphth toxoids (Td) adult/adol 06/12/94 zoster vaccine live 12/02/14 Procedures Procedure Date Related Diagnosis Body Site Left L4-5 Translaminar 04/03/13 Repair of umbilical hernia 2012 L4-5 Translaminar 2011 RT Knee torn meniscus repair 2011 Colonoscopy 2006 Left Knee torn meniscus repair 2006 Bilateral Carpal tunnel release 2002 release of ulnar nerve 2002 Vasectomy 1976 Circumcision1 53 Hernia repair 1Birth Social History Social History Type Response Smoking Status Never smoker Assessment and Plan Extracted from: Title: Office Visit Note Author: Noe Null Date: 02/10/15 Assessment/Plan Lumbago Lumbar disc herniation Lumbar radiculopathy Spinal stenosis of lumbar region (disorder) I discussed the patient's plan of care with Dr. Lopez. I also reviewed the patient's most recentlumbar MRI with the patient and also reviewed this with Dr. Lopez. He does have L3 4degenerative disc with disc herniation moderate to severe central stenosis moderate to severe bilateral foraminal stenosis and mild retrolisthesis. At L4 5 there is mild disc herniation moderate left foraminal narrowi ng and moderate central stenosis. L5-S1 noted some minimal disc bulging. We did discuss he feels this is similar pain to why he is experience in the past. He did feel he had improvement from previ ous injection treatments. He does appear to have some recurring left lower extremity radiculopathy from his spinal stenosis as well as somecomponent of mechanical back pain. Dr. Lopez recommends proceeding with repeating his left L4 5 translaminar epidural steroid injection. The patient does understand the rationale for the procedure as well as possible complications inclu ding bleeding, infection, allergic reaction, nerve irritation or damage, and risk of spinal headache. The patient also understands other remote possible complications including paraplegia, quadriplegia, , stroke, and seizure. The patient voiced understanding and wishes to proceed. The patient requests a local anesthetic. The patient will follow-up in 6 weeks andfollowing the injection. If the patient fails to improve or worsening symptoms, they will follow-up sooner. We did discuss he had persisting back pain he might need to consider further treatment for facet arthropathy. We also disc ussed if his symptoms persisted that we may need to consider getting new investigations of his lumbar MRI is bordering on [address] Lopez did not fill new investigations would change the treatme nt plan at this time so deferred but if his symptoms persisted and he did not improve then we would consider new investigations. The patient voiced understanding and agrees to the above plan. The above was in discussion with Dr. Lopez.
--- OUTSIDE RECORDS SUMMARY | 2017-04-20 09:02 | External Medical Summary | Referral Summary ---
:1955 Author Organization [facility] Address [address] [place] [address] Care Team Providers Name Role Phone JonoJt Primary Care Physician Encounter VC Date(s): 02/20/15 - 02/20/15 [facility] [address] [place] [address]- [phone] Discharge Diagnosis: Spinal stenosis of lumbar region (disorder) Discharge Diagnosis: Lumbar disc herniation Discharge Diagnosis: Lumbosacral radiculopathy Discharge Disposition: 01-Home or Self Care Attending Physician: Bhavesh Lopez MD Admitting Physician: Bhavesh Lopez MD Vital Signs Most recent to oldest [Reference Range]: 1 Peripheral Pulse Rate [60-100 bpm] 64 bpm (02/20/15 8:15 AM) Respiratory Rate [14-20 br/min] 16 br/min (02/20/15 8:15 AM) Blood Pressure [90-140/60-90 mmHg] 127/81 mmHg (02/20/15 8:15 AM) SpO2 97 % (02/20/15 8:15 AM) Problem List Condition Effective Dates Status [...] Daily, # 90 tabs, 3 Refill(s), Pharmacy: [facility], 1 tabsOral Daily Start Date: 06/03/15 Status: Orderedatenolol-chlorthalidone 50 mg-25 mg oral tablet See Instructions, 0.5 tabs Oral Daily., # 45 tabs, 3 Refill(s), Pharmacy: [facility] Start Date: 06/03/15 Status: OrderedFish Oil 1,000 mg, Oral, Daily, 0 Refill(s) Start Date: 12/13/13 Status: Orderedfolic acid 1 mg, Oral, Daily, 0 Refill(s) Start Date: 03/27/14 Status: Orderedglucosamine 500 mg, Oral, Daily, 0 Refill(s) Start Date: 03/27/14 Status: Orderedmeloxicam 15 mg oral tablet 15 mg 1 tabs, Oral, Daily, # 90 tabs, 3 Refill(s), Pharmacy: [facility], 1 tabsOral Daily Start Date: 06/03/15 Status: Orderedmultivitamin 1 tabs, Oral, Daily, 0 Refill(s) Start Date: 12/13/13 Status: Orderedsaw palmetto oral capsule 80 mg, Oral, Daily, 0 Refill(s) Start Date: 12/13/13 Status: Orderedsimvastatin 40 mg oral tablet 40 mg 1 tabs, Oral, Bedtime (once a day), # 90 tabs, 3 Refill(s), Pharmacy: [facility], 1 tabs Oral Bedtime (once a day) [...] Branch Block 07/09/15 Left L4-5/L5-S1 Facet 04/16/15 Injection(s), of diagnostic or therapeutic 02/20/15 substance(s) (including anesthetic, antispasmodic, opioid, steroid, other solution), not including neurolytic substances, including needle or catheter placement, includes contrast for localization when performed, Left L4-5 Translaminar 02/20/15 Left L4-5 Translaminar [...] Extracted from: Title: Ambulatory Patient Education Author: Stephanie Ye RN Date: Procedures Epidural Steroid Injection An epidural steroid injection is given to relieve pain in your neck, back, or legs that is caused by the irritation or swelling of a nerve root. This procedure involves injecting a steroid and numbing m edicine (anesthetic) into the epidural space. The epidural space is the space between the outer covering of your spinal cord and the bones that form your backbone (vertebra). LET YOUR HEALTH CARE PROVIDER KNOW ABOUT: Any allergies you have. All medicines you are taking, including vitamins, herbs, eye drops, creams , and obxk-jea-uyjagbz medicines such as aspirin. Previous problems you or members of your family have had with the use of anesthetics. Any blood disorders or blood clotting disorders you have. Previous surgeries you have had. Medical conditions you have. RISKS AND COMPLICATIONS Generally, this is a safe procedure. However, as with any procedure, complications can occur. Possible complications of epidural steroid injection include: Headache. Bleeding. Infection. Allergic reaction to the medicines. Damage to your nerves. The response to this procedure depends on the underlying cause of the pain and its duration. People who have long-term (chronic) pain are less likely to benefit from epidural steroids than are those people whose pain comes on strong and suddenly. BEFORE THE PROCEDURE Ask your health care provider about changing or stopping your regular medicines. You may be advised to stop taking blood-thinning medicines a few days before the procedure. You may be given medicines to reduce anxiety. Arrange for someone to take you home after the procedure. PROCEDURE You will remain awake during the procedure. You may receive medicine to make you relaxed. You will be asked to lie on your stomach. The injection site will be cleaned. The injection site will be numbed with a medicine (local anesthetic). A needle will be injected through your skin into the epidural space. Your health care provider will use an X-ray machine to ensure that the steroid is delivered closest to the affected nerve. You may have minimal discomfort at this time. Once the needle is in the right position, the local anesthetic and the steroid will be injected into the epidural space. The needle will then be removed and a bandage will be applied to the injection site. AFTER THE PROCEDURE You may be monitored for a short time before you go home. You may feel weakness or numbness in your arm or leg, which disappears within hours. You may be allowed to eat, drink, and take your regular medicine. You may have soreness at the site of the injection. Document Released: 07/25/2008 Document Revised: 12/19/2013 Document Reviewed: 10/05/2013 [employer] Patient Information 2015 [employer]. This information is not intended to replace advice given to you by your health care provider. Make sure you discuss any questions you have with your health care provider. No follow up information was provided.
--- OUTSIDE RECORDS SUMMARY | 2017-04-20 09:03 | External Medical Summary | Referral Summary ---
:1955 Author Organization [facility] Address [address] [place] [address] Care Team Providers Name Role Phone Jt De La Cruz Primary Care Physician Encounter VC Date(s): 08/20/15 - 08/20/15 [facility] [address] [place] [address]- [phone] Discharge Diagnosis: Lumbar spondylosis Discharge Disposition: 01-Home or Self Care Attending Physician: Bhavesh Lopez MD Admitting Physician: Bhavesh Lopez MD Referring Physician: Jt De La Cruz MD Vital Signs Most recent to oldest [Reference Range]: 1 Apical Heart Rate [60-100 bpm] 64 bpm (08/20/15 7:35 AM) Respiratory Rate [14-20 br/min] 16 br/min (08/20/15 7:35 AM) Blood Pressure [90-140/60-90 mmHg] 118/86 mmHg (08/20/15 7:35 AM) SpO2 98 % (08/20/15 7:35 AM) Problem List Condition Effective Dates Status [...] Daily, # 90 tabs, 3 Refill(s), Pharmacy: [facility], 1 tabsOral Daily Start Date: 06/03/15 Status: Orderedatenolol-chlorthalidone 50 mg-25 mg oral tablet See Instructions, 0.5 tabs Oral Daily., # 45 tabs, 3 Refill(s), [facility] Start Date: 06/03/15 Status: OrderedFish Oil 1,000 mg, Oral, Daily, 0 Refill(s) Start Date: 12/13/13 Status: Orderedfolic acid 1 mg, Oral, Daily, 0 Refill(s) Start Date: 03/27/14 Status: Orderedglucosamine 500 mg, Oral, Daily, 0 Refill(s) Start Date: 03/27/14 Status: Orderedmeloxicam 15 mg oral tablet 15 mg 1 tabs, Oral, Daily, # 90 tabs, 3 Refill(s), Pharmacy: [facility], 1 tabsOral Daily Start Date: 06/03/15 Status: Orderedmultivitamin 1 tabs, Oral, Daily, 0 Refill(s) Start Date: 12/13/13 Status: Orderedsaw palmetto oral capsule 80 mg, Oral, Daily, 0 Refill(s) Start Date: 12/13/13 Status: Orderedsimvastatin 40 mg oral tablet 40 mg 1 tabs, Oral, Bedtime (once a day), # 90 tabs, 3 Refill(s), Pharmacy: [facility], 1 tabs Oral Bedtime (once a day) Start Date: 06/03/15 Status: Ordered Results No data available for this section Immunizations Vaccine Date Refusal Reason tetanus/diphth/pertuss (Tdap) adult/adol 12/15/07 influenza virus vaccine, live 02/08/13 pneumococcal 13-valent conjugate vaccine 12/02/14 tetanus-diphth toxoids (Td) adult/adol 06/12/94 zoster vaccine live 12/02/14 Procedures Procedure Date Related Diagnosis Body Site Destruction by neurolytic agent, paravertebral 08/20/15 facet joint nerve(s), with imaging guidance (fluoroscopy or CT); lumbar or sacral, each additional facet joint (List separately in addition to code for primary procedure).. Destruction by neurolytic agent, paravertebral 08/20/15 facet joint nerve(s), with imaging guidance (fluoroscopy or CT); lumbar or sacral, each additional facet joint (List separately in addition to code for primary procedure).. Destruction by neurolytic agent, paravertebral 08/20/15 facet joint nerve(s), with imaging guidance (fluoroscopy or CT); lumbar or sacral, single facet joint Left L3-S1 Radiofrequency 08/20/15 Left L3-S1 Medial Branch Block with Differential 07/21/15 Left L3-S1 Medial Branch Block 07/09/15 Left L4-5/L5-S1 Facet 04/16/15 Left L4-5 Translaminar 02/20/15 Left L4-5 Translaminar 04/03/13 Repair of umbilical hernia 2012 L4-5 Translaminar 2010 RT Knee torn meniscus repair 2010 Colonoscopy 2006 Left Knee torn meniscus repair 2006 Bilateral Carpal tunnel release 2002 release of ulnar nerve 2001 Vasectomy 1976 Circumcision1 53 Hernia repair 1Birth Social History Social History Type Response Smoking Status Never smoker Assessment and Plan No data available for this section
--- OUTSIDE RECORDS SUMMARY | 2017-04-20 09:03 | External Medical Summary | Referral Summary ---
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 Discharge Diagnosis: Acute non-Q wave non-ST elevation myocardial infarction ( NSTEMI) Discharge Diagnosis: Chest pain Discharge Diagnosis: H/O non-ST elevation myocardial infarction (NSTEMI) Discharge Diagnosis: CAD S/P percutaneous coronary angioplasty Discharge Disposition: 01-Home or Self Care Attending Physician: Parker Cespedes MD Admitting Physician: Parker Cespedes MD Vital Signs Most recent to oldest [Reference Range]: 1 Temperature Axillary [35.2-36.7 degC] 36.0 degC (02/28/16 8:39 AM) Temperature Oral [35.8-37.3 degC] 36.8 degC (02/28/16 12:00 PM) Peripheral Pulse Rate [60-100 bpm] 63 bpm (02/28/16 12:00 PM) Heart Rate Monitored [60-100 bpm] 70 bpm (02/27/16 6:00 PM) Respiratory Rate [14-20 br/min] 16 br/min (02/28/16 12:00 PM) Blood Pressure [90-140/60-90 mmHg] 123/78 mmHg (02/28/16 12:00 PM) Mean Arterial Pressure, Cuff 86 mmHg (02/27/16 2:00 PM) SpO2 95 % (02/28/16 12:00 PM) Remote Telemetry Ongoing (02/28/16 8:39 AM) Problem List Condition Effective Dates Status Health Status Informant Acquired spondylolisthesis Active (disorder)(Confirmed) Acute pain(Confirmed) Active Allergic rhinitis(Confirmed) Active Hay fever(Confirmed) Active At risk of pressure sore(Confirmed) Active Cardiac disorder(Confirmed)1 Active DDD (degenerative disc 2010 Active disease)(Confirmed) Disc degeneration, lumbar(Confirmed) Active Left L4-5/L5-S1 Facet(Confirmed) 05/28/13 Active High cholesterol(Confirmed) Active Borderline hyperglycemia(Confirmed) Active Hyperlipidemia(Confirmed) Active Hypertension(Confirmed) Active Impaired skin integrity(Confirmed)2 Active Irregular heart rhythm(Confirmed)3 Active Knowledge deficit(Confirmed)4 Active Low back pain (finding)(Confirmed) Active Lumbar spondylosis(Confirmed) Active Lumbosacral radiculopathy(Confirmed) Active Lumbosacral spondylosis without Active myelopathy (disorder)(Confirmed) Lumbar disc herniation(Confirmed) Active Encounter for prostate cancer Active screening(Confirmed) Spinal stenosis of lumbar region 2010 Active (disorder)(Confirmed) Tissue perfusion Active alteration(Confirmed)5 1Problem added automatically by system based on initiation of Cardiac Output/ Ineffective Cardiac Perfusion Plan of [id number] added automatically by system based on initiation of Impaired Skin Integrity Plan of [id number] added automatically by system based on initiation of Knowledge Deficit Plan of [id number] added automatically by system based on initiation [...] tabs, 11 Refill(s) Start Date: 02/24/16 Status: Orderedcetirizine Oral, Bedtime (once a day), as needed for allergy symptoms, OTC, 0 Refill(s) Start Date: 02/26/16 Status: Orderedchlorpheniramine Oral, Bedtime (once a day), as needed for allergy symptoms, OTC, 0 Refill(s) Start Date: 02/26/16 Status: Orderedfexofenadine Oral, Bedtime (once a day), OTC, 0 Refill(s) Start Date: 02/26/16 Status: Orderedfolic acid 0.8 mg, Oral, Bedtime (once a day), 0 Refill(s) Start Date: 03/27/14 Status: OrderedGlucosamine Chondroitin Advanced oral tablet 1 tabs, Oral, Bedtime (once a day), 0 Refill(s) Start Date: 02/21/16 Status: Orderedlisinopril 2.5 mg oral tablet 2.5 mg 1 tabs, Oral, Daily, # 30 tabs, 11 Refill(s) Start Date: 02/24/16 Status: Orderedloratadine Oral, Bedtime (once a day), as needed for allergy symptoms, OTC, 0 Refill(s) Start Date: 02/26/16 Status: Orderedmeloxicam 15 mg oral tablet 15 mg 1 tabs, Oral, Daily, # 90 tabs, 3 Refill(s), Pharmacy: [facility], 1 tabsOral Daily Start Date: 06/03/15 Status: Orderedmultivitamin 1 tabs, Oral, Bedtime (once a day), 0 Refill(s) Start Date: 12/13/13 Status: OrderedNaphcon-A 1 drops, Eye-Both, BID, Seasonal Allergy Symptoms, 1-2 times daily, 0 Refill(s) Start Date: 02/21/16 Status: Orderedsaw palmetto oral capsule 450 mg, Oral, Bedtime (once a day), 0 Refill(s) Start Date: 12/13/13 Status: Orderedsimvastatin 40 mg oral tablet 40 mg 1 tabs, Oral, Bedtime (once a day), # 90 tabs, 3 Refill(s), Pharmacy: [facility], 1 tabs Oral Bedtime (once a day) Start Date: 06/03/15 Status: OrderedStopain Extra Strength 1 matias, Topical, QID, as needed for pain, 0 Refill(s) Start Date: 02/21/16 Status: Ordered Results Hematology Most recent to oldest [Reference Range]: 1 WBC [4.8-10.8 10*3/uL] 5.4 10*3/uL (02/28/16 5:59 AM) RBC [4.60-6.20] 4.70 (02/28/16 5:59 AM) Hgb [14.0-18.0 gm/dL] 13.9 gm/dL *LOW* (02/28/16 5:59 AM) Hct [42.0-52.0 %] 41.3 % *LOW* (02/28/16 5:59 AM) MCV [82.0-99.0 fL] 87.9 fL (02/28/16 5:59 AM) MCH [27.0-32.0 pg] 29.6 pg (02/28/16 5:59 AM) MCHC [32.0-36.0 gm/dL] 33.7 gm/dL (02/28/16 5:59 AM) RDW [11.5-14.5 %] 12.9 % (02/28/16 5:59 AM) Platelet [150-400 10*3/uL] 225 10*3/uL (02/28/16 5:59 AM) MPV [9.4-12.3 fL] 10.6 fL (02/28/16 5:59 AM) Immature Granulocytes [0.0-1.0 %] 0.3 % (02/26/16 2:45 AM) Neutrophils [51-75 %] 63 % (02/26/16 2:45 AM) Lymphocytes [20-46 %] 22 % (02/26/16 2:45 AM) Monocytes [4-11 %] 13 % *HI* (02/26/16 2:45 AM) Eosinophils [0-4 %] 2 % (02/26/16 2:45 AM) Basophils [0-2 %] 0 % (02/26/16 2:45 AM) Neutro Absolute [1.90-7.00 10*3] 4.48 10*3 (02/26/16 2:45 AM) Lymph Absolute [0.80-3.30 10*3] 1.54 10*3 (02/26/16 2:45 AM) [place]oke Absolute [0.30-1.00 10*3] 0.89 10*3 (02/26/16 2:45 AM) Eos Absolute [0.00-0.50 10*3] 0.17 10*3 (02/26/16 2:45 AM) Baso Absolute [0.00-0.20 10*3] 0.01 10*3 (02/26/16 2:45 AM) Nucleated RBC Automated [0 /100 WBC] 0.0 /100 WBC (02/26/16 2:45 AM) Chemistry Most recent to oldest [Reference Range]: 1 Sodium Lvl [136-144 mEq/L] 138 mEq/L (02/28/16 5:59 AM) Potassium Lvl [3.6-5.1 mEq/L] 4.0 mEq/L (02/28/16 5:59 AM) Chloride [99-109 mEq/L] 106 mEq/L (02/28/16 5:59 AM) CO2 [22-32 mEq/L] 26 mEq/L (02/28/16 5:59 AM) AGAP [3-20] 6 (02/28/16 5:59 AM) BUN [4-20 mg/dL] 12 mg/dL (02/28/16 5:59 AM) Glucose Lvl [70-100 mg/dL] 117 mg/dL *HI* (02/28/16 5:59 AM) Creatinine Lvl [0.64-1.27 mg/dL] 0.84 mg/dL (02/28/16 5:59 AM) eGFR [>60] >60 1 (02/28/16 5:59 AM) Calcium Lvl [8.6-10.0 mg/dL] 9.0 mg/dL (02/28/16 5:59 AM) Albumin Lvl [3.5-4.8 gm/dL] 4.2 gm/dL (02/26/16 2:45 AM) Total Protein [6.1-7.9 gm/dL] 7.3 gm/dL (02/26/16 2:45 AM) Globulin [1.9-4.3 gm/dL] 3.1 gm/dL (02/26/16 2:45 AM) ALT [17-63 U/L] 32 U/L (02/26/16 2:45 AM) AST [15-41 U/L] 33 U/L (02/26/16 2:45 AM) Alk Phos [26-104 U/L] 58 U/L (02/26/16 2:45 AM) Bili Total [0.2-1.2 mg/dL] 0.6 mg/dL 2 (02/26/16 2:45 AM) Troponin [<0.06 ng/mL] 0.38 ng/mL 3 *HHI* (02/26/16 7:48 PM) Blood Glucose, Capillary [70-100 mg/dL] 108 mg/dL *HI* (02/28/16 11:28 AM) Troponin-POC Positive *ABN* (02/26/16 2:56 AM) 1Result Comment: Multiply eGFR results by 1.21 for race.2Result Comment: Naproxen, specifically the metabolite O-desmethylnaproxen, may cause spurious elevation in Total Bilirubin levels.3Result Comment: Critical value called, and read-back verified. Called to PEÑA Castellanos (F4SE) on 02/26/2016 at 20:29 Immunizations Vaccine Date Refusal Reason tetanus/diphth/pertuss (Tdap) adult/adol 12/15/07 influenza virus vaccine, live 02/08/13 pneumococcal 13-valent conjugate vaccine 12/02/14 tetanus-diphth toxoids (Td) adult/adol 06/12/94 zoster vaccine live 12/02/14 Procedures Procedure Date Related Diagnosis Body Site Catheterization Left Heart with Coronary 02/27/16 Angiography (Right, Wrist)1 Catheterization Heart Coronary Intervention2 02/23/16 Catheterization Left Heart with Coronary 02/23/16 Angiography3 Left L3-S1 Radiofrequency 08/20/15 Left L3-S1 Medial [...] release of ulnar nerve 2001 Vasectomy 1976 Circumcision4 53 Hernia repair 1auto-populated from documented surgical [id number] from documented surgical [id number] from documented surgical [id number] Social History Social History Type Response Smoking Status Never smoker Assessment and Plan No data available for this section
--- OUTSIDE RECORDS SUMMARY | 2017-04-20 09:03 | External Medical Summary | Referral Summary ---
:1955 Author Organization [facility] Address [address] [place] [address] Care Team Providers Name Role Phone JonoJt Primary Care Physician Encounter VC Date(s): 02/20/15 - 02/20/15 [facility] [address] [place] [address]- [phone] Discharge Diagnosis: Spinal stenosis of lumbar region [...] Daily, # 90 tabs, 3 Refill(s), Pharmacy: [facility], 1 tabs Oral Daily Start Date: 12/18/14 Status: Orderedatenolol-chlorthalidone 50 mg-25 mg oral tablet See Instructions, 0.5 tabs Oral Daily. Fax to [facility] , # 45 tabs, 3 Refill(s), Pharmacy: [facility] Start Date: 12/27/14 Status: OrderedFish Oil 1,000 mg, Oral, Daily, 0 Refill(s) Start Date: 12/13/13 Status: Orderedfolic acid 1 mg, Oral, Daily, 0 Refill(s) Start Date: 03/27/14 Status: Orderedglucosamine 500 mg, Oral, Daily, 0 Refill(s) Start Date: 03/27/14 Status: Orderedmeloxicam 15 mg oral tablet 15 mg 1 tabs, Oral, Daily, Fax to , # 90 tabs, 3 Refill(s), Pharmacy: [facility], 1 tabs Oral Daily,Instr:Fax to Start Date: 12/27/14 Status: Orderedmultivitamin 1 tabs, Oral, Daily, 0 Refill(s) Start Date: 12/13/13 Status: Orderedsaw palmetto oral capsule 80 mg, Oral, Daily, 0 Refill(s) Start Date: 12/13/13 Status: Orderedsimvastatin 40 mg oral tablet 40 mg 1 tabs, Oral, Bedtime (once a day), # 90 tabs, 3 Refill(s), Pharmacy: [facility],1 tabs Oral Bedtime (once a day) Start Date: 12/18/14 Status: Ordered Results No data available for this section Immunizations Vaccine Date Refusal Reason tetanus/diphth/pertuss (Tdap) adult/adol 12/15/07 influenza virus vaccine, live 02/08/13 pneumococcal 13-valent conjugate vaccine 12/02/14 tetanus-diphth toxoids (Td) adult/adol 06/12/94 zoster vaccine live 12/02/14 Procedures Procedure Date Related Diagnosis Body Site Injection(s), of diagnostic or therapeutic 02/20/15 substance(s) [...] vitamins, herbs, eye drops, creams , and [id number] medicines such as aspirin. Previous problems you [...] Document Reviewed: 10/05/2013 ExitCare Patient Information 2015 [employer], [facility]. This information is not intended to replace advice given to you by your health care provider. Make sure you discuss any questions you have with your health care provider. No follow up information was provided.
--- OUTSIDE RECORDS SUMMARY | 2017-04-20 09:03 | External Medical Summary | Referral Summary ---
:1955 Author Organization [facility] Address [address] [place] [address] Care Team Providers Name Role Phone JonoJt Primary Care Physician Encounter VC Date(s): 06/16/15 - 06/16/15 [facility] [address] [place] [address]- [phone] Discharge Diagnosis: Lumbar disc herniation Discharge Diagnosis: Lumbosacral spondylosis without myelopathy (disorder) Discharge Diagnosis: Low back pain (finding) Discharge Diagnosis: Spinal stenosis of lumbar region (disorder) Discharge Diagnosis: Disc degeneration, lumbar Discharge Disposition: 01-Home or Self Care Attending Physician: Noe Null Admitting Physician: Noe Null Vital Signs Most recent to oldest [Reference Range]: 1 Temperature Tympanic [36.6-38.1 degC] 36.5 degC *LOW* (06/16/15 8:23 AM) Blood Pressure [90-140/60-90 mmHg] 132/80 mmHg (06/16/15 8:23 AM) Problem List Condition Effective Dates Status [...] Daily, # 90 tabs, 3 Refill(s), Pharmacy: [facility], 1 tabsOral Daily Start Date: 06/03/15 Status: Orderedatenolol-chlorthalidone 50 mg-25 mg oral tablet See Instructions, 0.5 tabs Oral Daily., # 45 tabs, 3 Refill(s), Pharmacy: [facility] Start Date: 06/03/15 Status: OrderedFish Oil 1,000 mg, Oral, Daily, 0 Refill(s) Start Date: 12/13/13 Status: Orderedfolic acid 1 mg, Oral, Daily, 0 Refill(s) Start Date: 03/27/14 Status: Orderedglucosamine 500 mg, Oral, Daily, 0 Refill(s) Start Date: 03/27/14 Status: Orderedmeloxicam 15 mg oral tablet 15 mg 1 tabs, Oral, Daily, # 90 tabs, 3 Refill(s), Pharmacy: [facility], 1 tabsOral Daily Start Date: 06/03/15 Status: Orderedmultivitamin 1 tabs, Oral, Daily, 0 Refill(s) Start Date: 12/13/13 Status: Orderedsaw palmetto oral capsule 80 mg, Oral, Daily, 0 Refill(s) Start Date: 12/13/13 Status: Orderedsimvastatin 40 mg oral tablet 40 mg 1 tabs, Oral, Bedtime (once a day), # 90 tabs, 3 Refill(s), Pharmacy: [facility], 1 tabs Oral Bedtime (once a day) [...] Office Visit Note Author: Noe Null Date: 06/16/15 Assessment/Plan Disc degeneration, lumbar Low back pain (finding) Lumbar disc herniation Lumbosacral spondylosis without myelopathy (disorder) Spinal stenosis of lumbar region (disorder) I discussed this patient's care with Dr. Lopez. I did review his previous lumbar spine MRI from 03/14/2013 with findings of multiple levels of facet arthropathy. There was progressive degenerative d isc disc herniationwith severe central and moderate to severe bilateral foraminal stenosis at L3 4, L4 5 moderate central disc herniation moderate left foraminal narrowing and moderate central stenosi s. We did discuss that his lumbar MRIs from 2012. Before considering further interventional procedures Dr. Lopez recommending getting a new lumbar spine x-ray as well as x-rays of her pelvis and left hip and as well as a lumbar MRI without contrast. He will follow-up to review the results before planning further interventional procedures. We did discuss surgery is generally last resort. He ling s no myelopathic Signs. He will continue home exercises and stretches. He was cautioned to avoid activities such as repetitive bending stooping heavy lifting that may aggravate his back. Follow-up with the results, sooner if needed. He voiced understanding and agrees to the above plan. The above was in discussion with Dr. Lopez.
--- OUTSIDE RECORDS SUMMARY | 2017-04-20 09:03 | External Medical Summary | Referral Summary ---
:1955 Author Organization [facility] Address [address] [place] [address] [place] [address] Care Team Providers Name Role Phone Jt De La Cruz Primary Care Physician Encounter VC Date(s): 04/08/15 - 04/08/15 [facility] [address] [place] [address] [place] [phone] [place] Discharge Disposition: 01-Home or Self Care Attending Physician: George Fuentes PA-C Admitting Physician: George Fuentes PA-C Vital Signs Most recent to oldest [Reference Range]: 1 Temperature Tympanic [36.6-38.1 degC] 36.1 degC *LOW* (04/08/15 5:21 PM) Apical Heart Rate [60-100 bpm] 82 bpm (04/08/15 5:21 PM) Blood Pressure [90-140/60-90 mmHg] 136/94 mmHg (04/08/15 5:21 PM) SpO2 97 % (04/08/15 5:21 PM) Problem List Condition Effective Dates Status [...] Daily, # 90 tabs, 3 Refill(s), Pharmacy: [facility], 1 tabs Oral Daily Start Date: 12/18/14 Status: Orderedatenolol-chlorthalidone 50 mg-25 mg oral tablet See Instructions, 0.5 tabs Oral Daily. Fax to [facility] , # 45 tabs, 3 Refill(s), Pharmacy: [facility] Start Date: 12/27/14 Status: OrderedFish Oil 1,000 mg, Oral, Daily, 0 Refill(s) Start Date: 12/13/13 Status: Orderedfolic acid 1 mg, Oral, Daily, 0 Refill(s) Start Date: 03/27/14 Status: Orderedglucosamine 500 mg, Oral, Daily, 0 Refill(s) Start Date: 03/27/14 Status: Orderedmeloxicam 15 mg oral tablet 15 mg 1 tabs, Oral, Daily, Fax to , # 90 tabs, 3 Refill(s), Pharmacy: [facility], 1 tabs Oral Daily,Instr:Fax to Start Date: 12/27/14 Status: Orderedmultivitamin 1 tabs, Oral, Daily, 0 Refill(s) Start Date: 12/13/13 Status: Orderedsaw palmetto oral capsule 80 mg, Oral, Daily, 0 Refill(s) Start Date: 12/13/13 Status: Orderedsimvastatin 40 mg oral tablet 40 mg 1 tabs, Oral, Bedtime (once a day), # 90 tabs, 3 Refill(s), Pharmacy: [facility],1 tabs Oral Bedtime (once a day) [...]
--- OUTSIDE RECORDS SUMMARY | 2017-04-20 09:03 | External Medical Summary | Referral Summary ---
:1955 Author Organization [facility], [facility] Address [address] [place] [address] [place] [address] Care Team Providers Name Role Phone Jt De La Cruz Primary Care Physician Encounter [facility] [id number] Date(s): 01/09/16 - 01/09/16 [facility] [address] [place] [address] [place] Discharge Disposition: 01-Home or Self Care Attending Physician: Jt De La Cruz MD Admitting Physician: Jt De La Cruz MD Vital Signs Most recent to oldest [Reference Range]: 1 Peripheral Pulse Rate [60-100 bpm] 67 bpm (01/09/16 1:08 PM) Blood Pressure [90-140/60-90 mmHg] 110/76 mmHg (01/09/16 1:08 PM) SpO2 95 % (01/09/16 1:08 PM) Problem List Condition Effective Dates Status Health Status Informant Acquired spondylolisthesis Active (disorder)(Confirmed) Allergic rhinitis(Confirmed) Active Hay fever(Confirmed) Active DDD (degenerative disc 2010 Active disease)(Confirmed) Disc degeneration, lumbar(Confirmed) Active Left L4-5/L5-S1 Facet(Confirmed) 05/28/13 Active High cholesterol(Confirmed) Active Borderline hyperglycemia(Confirmed) Active Hyperlipidemia(Confirmed) Active Hypertension(Confirmed) Active Irregular heart [...] Daily, # 90 tabs, 3 Refill(s), Pharmacy: [facility], 1 tabsOral Daily Start Date: 06/03/15 Status: Orderedatenolol-chlorthalidone 50 mg-25 mg oral tablet See Instructions, 0.5 tabs Oral Daily., # 45 tabs, 3 Refill(s), Pharmacy: [facility] Start Date: 06/03/15 Status: OrderedFish Oil 1,000 mg, Oral, Daily, 0 Refill(s) Start Date: 12/13/13 Status: Orderedfolic acid 1 mg, Oral, Daily, 0 Refill(s) Start Date: 03/27/14 Status: Orderedglucosamine 500 mg, Oral, Daily, 0 Refill(s) Start Date: 03/27/14 Status: Orderedmeloxicam 15 mg oral tablet 15 mg 1 tabs, Oral, Daily, # 90 tabs, 3 Refill(s), Pharmacy: [facility], 1 tabsOral Daily Start Date: 06/03/15 Status: Orderedmultivitamin 1 tabs, Oral, Daily, 0 Refill(s) Start Date: 12/13/13 Status: Orderedsaw palmetto oral capsule 80 mg, Oral, Daily, 0 Refill(s) Start Date: 12/13/13 Status: Orderedsimvastatin 40 mg oral tablet 40 mg 1 tabs, Oral, Bedtime (once a day), # 90 tabs, 3 Refill(s), Pharmacy: [facility], 1 tabs Oral Bedtime (once a day) Start Date: 06/03/15 Status: Ordered Results Chemistry Most recent to oldest [Reference Range]: 1 Sodium Lvl [135-144 mEq/L] 136 mEq/L (01/09/16 2:00 PM) Potassium Lvl [3.5-5.2 mEq/L] 4.0 mEq/L (01/09/16 2:00 PM) Chloride [99-111 mEq/L] 97 mEq/L *LOW* (01/09/16 2:00 PM) CO2 [23-31 mEq/L] 30 mEq/L (01/09/16 2:00 PM) AGAP [3-20] 9 (01/09/16 2:00 PM) BUN [8-26 mg/dL] 11 mg/dL (01/09/16 2:00 PM) Glucose Lvl [70-99 mg/dL] 97 mg/dL (01/09/16 2:00 PM) Creatinine Lvl [0.72-1.25 mg/dL] 0.78 mg/dL (01/09/16 2:00 PM) eGFR [>60 mL/min] >60 mL/min 1 (01/09/16 2:00 PM) Calcium Lvl [8.9-10.5 mg/dL] 9.9 mg/dL (01/09/16 2:00 PM) Albumin Lvl [3.4-4.8 gm/dL] 4.6 gm/dL (01/09/16 2:00 PM) Total Protein [6.0-7.6 gm/dL] 6.7 gm/dL (01/09/16 2:00 PM) Globulin [1.8-4.0 gm/dL] 2.1 gm/dL (01/09/16 2:00 PM) ALT [0-55 U/L] 33 U/L (01/09/16 2:00 PM) AST [5-34 U/L] 33 U/L (01/09/16 2:00 PM) Alk Phos [40-150 U/L] 62 U/L (01/09/16 2:00 PM) Bili Total [0.2-1.2 mg/dL] 1.1 mg/dL (01/09/16 2:00 PM) PSA (wihout Reflex Free) [0.0-4.5 ng/mL] 2.7 ng/mL 2 (01/09/16 2:00 PM) Chol [0-199 mg/dL] 180 mg/dL (01/09/16 2:00 PM) Trig [0-149 mg/dL] 171 mg/dL *HI* (01/09/16 2:00 PM) HDL [40-84 mg/dL] 43 mg/dL (01/09/16 2:00 PM) LDL [0-130 mg/dL] 103 mg/dL (01/09/16 2:00 PM) VLDL Cholesterol [0-28 mg/dL] 34 mg/dL *HI* (01/09/16 2:00 PM) Cardiac Risk [0.0-5.7] 4.2 (01/09/16 2:00 PM) Hgb A1c [4.1-5.6 %] 5.9 % *HI* (01/09/16 2:00 PM) eAvg Glucose 122.6 mg/dL (01/09/16 2:00 PM) 1Result Comment: Multiply eGFR results by 1.21 for race.2Result Comment: AUA PSA Best Practice Guidelines: Age-Adjusted PSA Values by Ethnic Group Age Range Asians - Caucasians Americans 40-49 0-2.0 0-2.0 0-2.5 50-59 0-3.0 0-4.0 0-3.5 60-69 0-4.0 0-4.5 0-4.5 70-79 0-5.0 0-5.5 0-6.5 Immunizations Vaccine Date Refusal Reason tetanus/diphth/pertuss (Tdap) adult/adol 12/15/07 influenza virus vaccine, live 02/08/13 pneumococcal 13-valent conjugate vaccine 12/02/14 tetanus-diphth toxoids (Td) adult/adol 06/12/94 zoster vaccine live 12/02/14 Procedures Procedure Date Related Diagnosis Body Site Collection of venous blood by venipuncture 01/09/16 Left L3-S1 Radiofrequency 08/20/15 Left L3-S1 Medial [...] Author: Jt De La Cruz MD Date: 01/09/16 Family Medicine Spinal Stenosis Spinal stenosis is an abnormal narrowing of the canals of your spine (vertebrae ). CAUSES Spinal stenosis is caused by areas of bone pushing into the central canals of your vertebrae. This condition can be present at (congenital). It also may be caused by arthritic deterioration of your vertebrae (spinal degeneration) . SYMPTOMS Pain that is generally worse with activities, particularly standing and walking. Numbness, tingling, hot or cold sensations, weakness, or weariness in your legs. Frequent episodes of falling. A foot-slapping gait that leads to muscle weakness. DIAGNOSIS Spinal stenosis is diagnosed with the use of magnetic resonance imaging (MRI) or computed tomography (CT). TREATMENT Initial therapy for spinal stenosis focuses on the management of the pain and other symptoms associated with the condition. These therapies include: Practicing postural changes to lessen pressure on your nerves. Exercises to strengthen the core of your body. Loss of excess body weight. The use of nonsteroidal anti-inflammatory medicines to reduce swelling and inflammation in your nerves. When therapies to manage pain are not successful, surgery to treat spinal stenosis may be recommended. This surgery involves removing excess bone, which puts pressure on your nerve roots. During this perez rgery (laminectomy), the posterior haleigh arch (lamina) and excess bone around the facet joints are removed. This information is not intended to replace advice given to you by your health care provider. Make sure you discuss any questions you have with your health care provider. Document Released: 07/08/2004 Document Revised: 05/09/2015 Document Reviewed: 07/27/2013 [facility] Patient Information 2016 [employer] Labs Comprehensive Metabolic Panel The comprehensive metabolic panel (CMP) measures levels of the following substances in your blood: Glucose. Glucose is a simple sugar that serves as the main source of energy for your body. Creatinine. Creatinine is a waste product of normal muscle activity. It is excreted from the body by the kidneys. Blood urea nitrogen (BUN). Urea nitrogen is a waste product of protein breakdown. It is produced when excess protein in your body is broken down and used for energy. It is excreted by the kidneys. Electrolytes. Electrolytes are negatively or positively charged particles that are dissolved in the water of different body compartments. This includes the serum portion of blood, water inside ce lls, and water outside cells. Concentrations of electrolytes vary among the different fluid compartments. Electrolytes are tightly regulated to maintain a saltwater and acidbase balance in the body. The electrolytes include: Potassium. Sodium. Chloride. Calcium. Bicarbonate. Alkaline phosphatase (ALP). This is a protein found in all tissues of your body. The bones, liver, and bile ducts have the highest amounts. Alanine aminotransferase (ALT). ALT is an enzyme found throughout the body. It is present in the highest concentrations in the tissues of the liver. If your liver is injured, there will also be ALT in your bloodstream. Aspartate aminotransferase (AST). This is another enzyme found mostly in your liver. There is also a high concentration in your muscle cells and heart. Testing for AST is helpful to check for liver damage. Bilirubin. As the liver breaks down red blood cells, it produces a waste product called bilirubin. A high level of bilirubin can indicate certain health problems. Albumin. This is a protein that is a major component of the liquid part of blood (serum). It is made by the liver and can be measured in the bloodstream. Total protein. This is a measurement of the amount of the two types of protein found in blood serum. The two proteins are albumin and globulins. Globulins are part of your immune system. A comprehensive metabolic panel requires a blood sample taken from a vein in your arm or hand. PREPARATION FOR TEST Your health care provider may ask you not to eat or drink anything for 68 hours before your blood sample is taken. RESULTS It is your responsibility to obtain your test results. Ask the lab or department performing the test when and how you will get your results. Contact your health care provider to discuss any questions you have about your results. RANGE OF NORMAL VALUES Ranges for normal values may vary among different labs and hospitals. You should always check with your health care provider after having lab work or other tests done to discuss whether your values are considered within normal limits. The following are normal ranges for each part of a CMP: Glucose Cord: 4596 mg/dL or 2.55.3 mmol/L (SI units). Premature : 2060 mg/dL or 1.13.3 mmol/L. : 3060 mg/dL or 1.73.3 mmol/L. : 4090 mg/dL or 2.25.0 mmol/L. Child under 2 years old: 46807 mg/dL or 3.35.5 mmol/L. Adult or child over 2 years old: Fastin mg/dL or less than 6.1 mmol/L. Random (nonfasting or casual): less than or equal to 200 mg/dL or less than 11.1 mmol/L. Elderly: increase in normal range after age 50 years. Creatinine Child under 2 years old: 0.10.4 mg/dL. Child 25 years old: 0.20.5 mg/dL. Child 69 years old: 0.30.6 mg/dL. Child or adolescent 1017 years old: 0.41.0 mg/dL. Adult 1840 years old: Female: 0.51.0 mg/dL. Male: 0.61.2 mg/dL. Adult 4160 years old: Female: 0.51.1 mg/dL. Male: 0.61.3 mg/dL. Adult 61 years old and above: Female: 0.51.2 mg/dL. Male: 0.71.3 mg/dL. BUN Cord: 2140 mg/dL. [place]: 312 mg/dL. Infant: 518 mg/dL. Child: 518 mg/dL. Adult: 1020 mg/dL or 3.67.1 mmol/L (SI units). Elderly: may be slightly higher than adult. Potassium [place]: 3.95.9 mEq/L. : 4.15.3 mEq/L. Child: 3.44.7 mEq/L. Adult or elderly: 3.55.0 mEq/L or 3.55.0 mmol/L (SI units). Sodium [place]: 318495 mEq/L. Infant: 259626 mEq/L. Child: 876656 mEq/L. Adult or elderly: 490962 mEq/L or 625098 mmol/L (SI units). Chloride Premature infant: 31628 mEq/L. [place]: 79738 mEq/L. Child: 05914 mEq/L. Adult or elderly: 14158 mEq/L or 34327 mmol/L (SI units). Calcium Total calcium: [place] under 10 days old: 7.610.4 mg/dL or 1.92.60 mmol/L. Umbilical: 9.011.5 mg/dL or 2.252.88 mmol/L. 10 days to 2 years old: 9.010.6 mg/dL or 2.32.65 mmol/L. Child: 8.810.8 mg/dL or 2.22.7 mmol/L. Adult: 9.010.5 mg/dL or 2.252.62 mmol/L. Ionized calcium: : 4.205.58 mg/dL or 1.051.37 mmol/L. 2 months to 18 years old: 4.805.52 mg/dL or 1.201.38 mmol/L. Adult: 4.55.6 mg/dL or 1.051.30 mmol/L. Bicarbonate [place]: 1322 mEq/L. Infant: 2028 mEq/L. Child: 2028 mEq/L. Adult or elderly: 2330 mEq/L or 2330 mmol/L (SI units). ALP Child under 2 years old: 79348 units/L. 28 years old: 85500 units/L. 915 years old: 93100 units/L. 1621 years old: 38174 units/L. Adult: 25748 units/L or 0.52.0 microkatal/L (SI units). Elderly: slightly higher than adult. ALT Infant: may be twice as high as adult values. Child or adult: 436 international units/L at 98.6F (37C) or 4 36 units/L (SI units). Elderly: may be slightly higher than adult values. AST [place] 05 days old: 63139 units/L. Child under 3 years old: 1560 units/L. 36 years old: 1550 units/L. 612 years old: 1050 units/L. 1218 years old: 1040 units/L. Adult: 035 units/L or 00.58 microkatal/L (SI units). Elderly: slightly higher than adults. Bilirubin Total bilirubin for : 1.012.0 mg/dL or 17.1205 micromoles/ L (SI units). Adult, elderly, or child: Total bilirubin: 0.31.0 mg/dL or 5.117 micromoles/L. Indirect bilirubin: 0.20.8 mg/dL or 3.412.0 micromoles/L. Direct bilirubin: 0.10.3 mg/dL or 1.75.1 micromoles/L. Albumin Premature infant: 3.04.2 g/dL. [place]: 3.55.4 g/dL. Infant: 4.45.4 g/dL. Child: 4.05.9 g/dL. Adult or elderly: 3.55.0 g/dL or 3550 g/L (SI units). Total protein Premature infant: 4.27.6 g/dL. [place]: 4.67.4 g/dL. Infant: 6.06.7 g/dL. Child: 6.28.0 g/dL. Adult or elderly: 6.48.3 g/dL or 6483 g/L (SI units). MEANING OF RESULTS OUTSIDE OF NORMAL VALUE RANGES Diet and levels of activity can have an effect on your test results. Sometimes they can be the cause of values that are outside of normal limits. However, sometimes values outside normal limits can indicate a medical disorder: Glucose Abnormally high glucose levels (hyperglycemia) are usually associated with prediabetes mellitus and diabetes mellitus. They can also occur with severe stress on the body. This stress can come from surge ry or events such as stroke or trauma. Overactive thyroid gland and pancreatitis or pancreatic cancer can also cause abnormally high glucose levels. Abnormally low glucose levels (hypoglycemia) can occu r with underactive thyroid gland and rare insulin-secreting tumors (insulinoma) . Creatinine Abnormally high creatinine levels are most commonly seen in kidney failure. They can also be seen with overactive thyroid (hyperthyroidism), conditions related to overgrowth of the body (acromegaly or g igantism), abnormal breakdown of muscle tissue (rhabdomyolysis), and early muscular dystrophy. Abnormally low creatinine levels can indicate low muscle mass associated with malnutrition or late-stage muscular dystrophy. BUN Abnormally high BUN levels, especially greater than 50 mg/dL, generally mean that your kidneys are not functioning normally. Abnormally low BUN levels can be seen with malnutrition and liver failure. Potassium Abnormally high potassium levels (hyperkalemia) are most often seen with kidney disease, massive destruction of red blood cells (hemolysis), and adrenal gland failure (Atkinson disease). Abnormally low p otassium levels (hypokalemia) are seen with excessive levels of the hormone aldosterone (hyperaldosteronism). Sodium Abnormally high sodium levels (hypernatremia) can be seen with dehydration, excessive thirst, and urination due to abnormally low levels of antidiuretic hormone (diabetes insipidus). They can also be se en with hyperaldosteronism and excessive levels of cortisol in the body ( [place] syndrome). Abnormally low levels of sodium (hyponatremia) can be seen with congestive heart failure, cirrhosis of the fabi er, kidney failure, and the syndrome of inappropriate antidiuretic hormone ( SIADH). Chloride Abnormally high levels of chloride (hyperchloremia) can be seen with acute kidney failure, diabetes insipidus, prolonged diarrhea, and poisoning with aspirin or bromide. Abnormally low levels of chlorid e (hypochloremia) can be seen with prolonged vomiting, acute adrenal gland failure (addisonian crisis), hyperaldosteronism, and SIADH. Calcium Abnormally high levels of calcium (hypercalcemia) can occur with excessive activity of the parathyroid glands (hyperparathyroidism), certain cancers, and a type of inflammation seen in sarcoidosis and t uberculosis. Abnormally low levels of calcium (hypocalcemia) can be seen with underactive parathyroid glands (hypoparathyroidism), vitamin D deficiency, and acute pancreatitis. Bicarbonate Abnormally high bicarbonate levels are seen after prolonged vomiting and diuretic therapy, which lead to a decrease in the amount of acid in the body ( metabolic alkalosis). They can also be seen in cond itions that increase the amount of bicarbonate in the body. These conditions include hyperaldosteronism and rare hereditary disorders that interfere with how your kidneys handle electrolytes, such as Ba rtter syndrome. Abnormally low bicarbonate levels are seen with conditions that cause your body to produce too much acid (metabolic acidosis). These conditions include uncontrolled diabetes mellitus and poisoning with aspirin, methanol, or antifreeze (ethylene glycol). ALP An abnormally high level of ALP can be a sign of certain cancers or tumors, liver disease, hepatitis, sarcoidosis, rickets, a blocked bile duct, or bone problems such as a fracture. An abnormally low le guille of ALP can be caused by malnutrition, hypophosphatasia, or Rashad disease. ALT An abnormally high level of ALT can indicate mononucleosis, pancreatitis, or liver problems. The liver problems include hepatitis, cirrhosis, and liver cancer. AST An abnormally high level of AST can indicate some of the same liver problems as a high level of ALT. It is also related to conditions such as mononucleosis, pancreatitis, and muscle trauma. Bilirubin An abnormally high level of bilirubin can result from liver problems such as cirrhosis, liver disease, and hepatitis. It can also result from problems with the bile ducts, pancreas, or gallbladder. Albumin An abnormally high level of albumin might be a sign of dehydration or of eating a high-protein diet. You can have a low level of albumin if you eat a low -protein diet or have had weight-loss surgery. An abnormally low level of albumin can also be a sign of a more serious health issue, including liver disease, kidney disease, or Crohn disease. Total protein An abnormally high total protein level often indicates an infection (such as hepatitis B or C or HIV), multiple myeloma, or Waldenstrom disease. An abnormally low level of total protein is seen in such conditions as malnutrition, severe ward, heavy bleeding, and liver disease. This information is not intended to replace advice given to you by your health care provider. Make sure you discuss any questions you have with your health care provider. Document Released: 05/11/2005 Document Revised: 05/09/2015 Document Reviewed: 08/14/2014 [employer] Patient Information [address] [facility]. No follow up information was provided. Extracted from: Title: Office Visit Note Author: Jt De La Cruz MD Date: 01/09/16 Assessment/Plan Acquired spondylolisthesis (disorder) No change in treatment. Ordered: Office Visit Level 4 Est 57110 Borderline hyperglycemia Lab fasting Ordered: Hemoglobin A1c Office Visit Level 4 Est 14098 Encounter for prostate cancer screening Lab for PSA Ordered: Office Visit Level 4 Est 93180 Prostate Specific Antigen High cholesterol Lab and continue with the current medications. Ordered: Lipid Panel Office Visit Level 4 Est 44370 Hypertension No change with medications. Palpitations are better controlled. Has see Dr. Lizzy Puga. Ordered: Comprehensive Metabolic Panel Office Visit Level 4 Est 72473 Spinal stenosis of lumbar region (disorder) Ordered: Office Visit Level 4 Est 63199
--- OUTSIDE RECORDS SUMMARY | 2017-04-20 09:03 | External Medical Summary | Referral Summary ---
:1955 Author Organization [facility], [facility] Address [address] [place] [address] [place] [address] Care Team Providers Name Role Phone Jt De La Cruz Primary Care Physician Encounter [facility] Date(s): 05/12/15 - 05/12/15 [facility] [address] [place] [address] [place] [phone] [place] Discharge Diagnosis: Bilateral high frequency sensorineural hearing loss Discharge Disposition: 01-Home or Self Care Attending Physician: Darek Salazar MD Admitting Physician: Denis Jones Vital Signs No data available for this [...] Daily, # 90 tabs, 3 Refill(s), Pharmacy: [facility], 1 tabs Oral Daily Start Date: 12/18/14 Status: Orderedatenolol-chlorthalidone 50 mg-25 mg oral tablet See Instructions, 0.5 tabs Oral Daily. Fax to [facility] , # 45 tabs, 3 Refill(s), Pharmacy: [facility] Start Date: 12/27/14 Status: OrderedFish Oil 1,000 mg, Oral, Daily, 0 Refill(s) Start Date: 12/13/13 Status: Orderedfolic acid 1 mg, Oral, Daily, 0 Refill(s) Start Date: 03/27/14 Status: Orderedglucosamine 500 mg, Oral, Daily, 0 Refill(s) Start Date: 03/27/14 Status: Orderedmeloxicam 15 mg oral tablet 15 mg 1 tabs, Oral, Daily, Fax to , # 90 tabs, 3 Refill(s), Pharmacy: [facility], 1 tabs Oral Daily,Instr:Fax to Start Date: 12/27/14 Status: Orderedmultivitamin 1 tabs, Oral, Daily, 0 Refill(s) Start Date: 12/13/13 Status: Orderedsaw palmetto oral capsule 80 mg, Oral, Daily, 0 Refill(s) Start Date: 12/13/13 Status: Orderedsimvastatin 40 mg oral tablet 40 mg 1 tabs, Oral, Bedtime (once a day), # 90 tabs, 3 Refill(s), Pharmacy: [facility],1 tabs Oral Bedtime (once a [...]
--- OUTSIDE RECORDS SUMMARY | 2017-04-20 09:03 | External Medical Summary | Referral Summary ---
:1955 Author Organization [facility], [facility], Audiology Address [address] [place] [address] Care Team Providers Name Role Phone De La CruzJt mills Primary Care Physician Encounter [facility] Date(s): 06/16/15 - 06/16/15 [facility] [address] [address] [place] [address]- Discharge Diagnosis: Bilateral sensorineural hearing loss Discharge Disposition: 01-Home or Self Care Attending Physician: Blake Freitas MD Admitting Physician: Blake Freitas MD Vital Signs No data available for [...] Daily, # 90 tabs, 3 Refill(s), Pharmacy: [facility], 1 tabsOral Daily Start Date: 06/03/15 Status: Orderedatenolol-chlorthalidone 50 mg-25 mg oral tablet See Instructions, 0.5 tabs Oral Daily., # 45 tabs, 3 Refill(s), Pharmacy: [facility] Start Date: 06/03/15 Status: OrderedFish Oil 1,000 mg, Oral, Daily, 0 Refill(s) Start Date: 12/13/13 Status: Orderedfolic acid 1 mg, Oral, Daily, 0 Refill(s) Start Date: 03/27/14 Status: Orderedglucosamine 500 mg, Oral, Daily, 0 Refill(s) Start Date: 03/27/14 Status: Orderedmeloxicam 15 mg oral tablet 15 mg 1 tabs, Oral, Daily, # 90 tabs, 3 Refill(s), Pharmacy: [facility], 1 tabsOral Daily Start Date: 06/03/15 Status: Orderedmultivitamin 1 tabs, Oral, Daily, 0 Refill(s) Start Date: 12/13/13 Status: Orderedsaw palmetto oral capsule 80 mg, Oral, Daily, 0 Refill(s) Start Date: 12/13/13 Status: Orderedsimvastatin 40 mg oral tablet 40 mg 1 tabs, Oral, Bedtime (once a day), # 90 tabs, 3 Refill(s), Pharmacy: [facility], 1 tabs Oral Bedtime (once a [...]
--- OUTSIDE RECORDS SUMMARY | 2017-04-20 09:03 | External Medical Summary | Referral Summary ---
:1955 Author Organization [facility], [facility], Pain Management Address [address] [place] [address] Care Team Providers Name Role Phone Jono Jt Ayala Primary Care Physician Encounter [facility] Date(s): 02/10/15 - 02/10/15 [facility] [address] [address] [place] [address]- [phone] Discharge Diagnosis: Lumbago Discharge Diagnosis: Lumbar disc [...] Daily, # 90 tabs, 3 Refill(s), Pharmacy: [facility], 1 tabsOral Daily Start Date: 06/03/15 Status: Orderedatenolol-chlorthalidone 50 mg-25 mg oral tablet See Instructions, 0.5 tabs Oral Daily., # 45 tabs, 3 Refill(s), Pharmacy: [facility] Start Date: 06/03/15 Status: OrderedFish Oil 1,000 mg, Oral, Daily, 0 Refill(s) Start Date: 12/13/13 Status: Orderedfolic acid 1 mg, Oral, Daily, 0 Refill(s) Start Date: 03/27/14 Status: Orderedglucosamine 500 mg, Oral, Daily, 0 Refill(s) Start Date: 03/27/14 Status: Orderedmeloxicam 15 mg oral tablet 15 mg 1 tabs, Oral, Daily, # 90 tabs, 3 Refill(s), Pharmacy: [facility], 1 tabsOral Daily Start Date: 06/03/15 Status: Orderedmultivitamin 1 tabs, Oral, Daily, 0 Refill(s) Start Date: 12/13/13 Status: Orderedsaw palmetto oral capsule 80 mg, Oral, Daily, 0 Refill(s) Start Date: 12/13/13 Status: Orderedsimvastatin 40 mg oral tablet 40 mg 1 tabs, Oral, Bedtime (once a day), # 90 tabs, 3 Refill(s), Pharmacy: [facility], 1 tabs Oral Bedtime (once a day) [...]
--- OUTSIDE RECORDS SUMMARY | 2017-04-20 09:03 | External Medical Summary | Referral Summary ---
:1955 Author Organization [facility], [facility], Audiology Address [address] [place] [address] Care Team Providers Name Role Phone De La CruzJt mills Primary Care Physician Encounter [facility] Date(s): 07/21/15 - 07/21/15 [facility] [address] [address] [place] [address]- Discharge Disposition: 01-Home or Self Care Attending [...] Daily, # 90 tabs, 3 Refill(s), Pharmacy: [facility], 1 tabsOral Daily Start Date: 06/03/15 Status: Orderedatenolol-chlorthalidone 50 mg-25 mg oral tablet See Instructions, 0.5 tabs Oral Daily., # 45 tabs, 3 Refill(s), Pharmacy: [facility] Start Date: 06/03/15 Status: OrderedFish Oil 1,000 mg, Oral, Daily, 0 Refill(s) Start Date: 12/13/13 Status: Orderedfolic acid 1 mg, Oral, Daily, 0 Refill(s) Start Date: 03/27/14 Status: Orderedglucosamine 500 mg, Oral, Daily, 0 Refill(s) Start Date: 03/27/14 Status: Orderedmeloxicam 15 mg oral tablet 15 mg 1 tabs, Oral, Daily, # 90 tabs, 3 Refill(s), Pharmacy: [facility], 1 tabsOral Daily Start Date: 06/03/15 Status: Orderedmultivitamin 1 tabs, Oral, Daily, 0 Refill(s) Start Date: 12/13/13 Status: Orderedsaw palmetto oral capsule 80 mg, Oral, Daily, 0 Refill(s) Start Date: 12/13/13 Status: Orderedsimvastatin 40 mg oral tablet 40 mg 1 tabs, Oral, Bedtime (once a day), # 90 tabs, 3 Refill(s), Pharmacy: [facility], 1 tabs Oral Bedtime (once a day) [...]
--- OUTSIDE RECORDS SUMMARY | 2017-04-20 09:03 | External Medical Summary | Referral Summary ---
:1955 Author Organization [facility], [facility] Address [address] [place] [address] [place] [address] Care Team Providers Name Role Phone Jt De La Cruz Primary Care Physician Encounter [facility] Date(s): 04/04/15 - 04/04/15 [facility] [place] [address] [place] [id number] Discharge Disposition: 01-Home or Self Care Attending Physician: Jt De La Cruz MD Admitting Physician: Jt De La Cruz MD Vital Signs Most recent to oldest [Reference Range]: 1 Blood Pressure [90-140/60-90 mmHg] 132/84 mmHg (04/04/15 10:00 AM) Problem List Condition Effective Dates Status [...] Daily, # 90 tabs, 3 Refill(s), Pharmacy: [facility], 1 tabs Oral Daily Start Date: 12/18/14 Status: Orderedatenolol-chlorthalidone 50 mg-25 mg oral tablet See Instructions, 0.5 tabs Oral Daily. Fax to [facility] , # 45 tabs, 3 Refill(s), Pharmacy: [facility] Start Date: 12/27/14 Status: OrderedFish Oil 1,000 mg, Oral, Daily, 0 Refill(s) Start Date: 12/13/13 Status: Orderedfolic acid 1 mg, Oral, Daily, 0 Refill(s) Start Date: 03/27/14 Status: Orderedglucosamine 500 mg, Oral, Daily, 0 Refill(s) Start Date: 03/27/14 Status: Orderedmeloxicam 15 mg oral tablet 15 mg 1 tabs, Oral, Daily, Fax to , # 90 tabs, 3 Refill(s), Pharmacy: [facility], 1 tabs Oral Daily,Instr:Fax to Start Date: 12/27/14 Status: Orderedmultivitamin 1 tabs, Oral, Daily, 0 Refill(s) Start Date: 12/13/13 Status: Orderedsaw palmetto oral capsule 80 mg, Oral, Daily, 0 Refill(s) Start Date: 12/13/13 Status: Orderedsimvastatin 40 mg oral tablet 40 mg 1 tabs, Oral, Bedtime (once a day), # 90 tabs, 3 Refill(s), Pharmacy: [facility],1 tabs Oral Bedtime (once a [...]
--- OUTSIDE RECORDS SUMMARY | 2017-04-20 09:03 | External Medical Summary | Referral Summary ---
:1955 Author Organization [facility], [facility] Address [address] [place] [address] Care Team Providers Name Role Phone De La CruzJt mills Primary Care Physician Encounter [facility] Date(s): 08/04/15 - 08/04/15 [facility] [address] [address] [place] [address]- Discharge Diagnosis: Bilateral sensorineural hearing loss Discharge Disposition: 01-Home or Self Care Attending Physician: Mone Henry Admitting Physician: Mone Henry Vital Signs No data available for this [...] Daily, # 90 tabs, 3 Refill(s), Pharmacy: [facility], 1 tabsOral Daily Start Date: 06/03/15 Status: Orderedatenolol-chlorthalidone 50 mg-25 mg oral tablet See Instructions, 0.5 tabs Oral Daily., # 45 tabs, 3 Refill(s), Pharmacy: [facility] Start Date: 06/03/15 Status: OrderedFish Oil 1,000 mg, Oral, Daily, 0 Refill(s) Start Date: 12/13/13 Status: Orderedfolic acid 1 mg, Oral, Daily, 0 Refill(s) Start Date: 03/27/14 Status: Orderedglucosamine 500 mg, Oral, Daily, 0 Refill(s) Start Date: 03/27/14 Status: Orderedmeloxicam 15 mg oral tablet 15 mg 1 tabs, Oral, Daily, # 90 tabs, 3 Refill(s), Pharmacy: [facility], 1 tabsOral Daily Start Date: 06/03/15 Status: Orderedmultivitamin 1 tabs, Oral, Daily, 0 Refill(s) Start Date: 12/13/13 Status: Orderedsaw palmetto oral capsule 80 mg, Oral, Daily, 0 Refill(s) Start Date: 12/13/13 Status: Orderedsimvastatin 40 mg oral tablet 40 mg 1 tabs, Oral, Bedtime (once a day), # 90 tabs, 3 Refill(s), Pharmacy: [facility], 1 tabs Oral Bedtime (once a [...] tunnel release 2001 release of ulnar nerve 2002 Vasectomy 1976 Circumcision1 53 Hernia repair 1Birth Social History Social History Type Response Smoking Status Never smoker Assessment and Plan No data available for this section
--- OUTSIDE RECORDS SUMMARY | 2017-04-20 09:04 | External Medical Summary | Continuity of Care Document ---
:1955 Author Organization [facility] Allergies Active Description Code Type Severity Reaction Onset Reported/ Identified Relationship Clinical to Patient Status Yes niacin NKMA N/A N/A 08/29/2013 Yes oxyCODONE NKMA N/A DIZZY 08/29/2013 Yes niacin NKMA N/A N/A 08/29/2013 Yes oxyCODONE NKMA N/A DIZZY 08/29/2013 Yes lisinopril NKMA N/A N/A 10/01/2016 Medications Medication Packaging Start Stop Route Dosage Sig Date Date See atenolol-chlorth 4 014 Instructions, alidone(atenolol 0.5 tabs Oral -chlorthalidone Daily. Fax to 50 mg-25 mg oral [place]amaran tablet) , 45 tabs 1 tabs Oral 15 mg 1 meloxicam(meloxi 4 014 tabs, Oral, cam 15 mg oral Daily, Fax to tablet) , 90 tabs 1 tabs Oral 1 multivitamin(mul 4 tabs, Oral, tivitamin) Bedtime (once a day), 0 Refill(s) 1 tabs Oral 20 mg 1 simvastatin(simv 4 014 tabs, Oral, astatin 20 mg Bedtime (once a oral tablet) day), 30 tabs 1 tabs Oral 20 mg 1 simvastatin(simv 4 014 tabs, Oral, astatin 20 mg Bedtime (once a oral tablet) day), [place] , 90 tabs See atenolol-chlorth 4 014 Instructions, alidone(atenolol 0.5 tabs Oral -chlorthalidone Daily. Fax to 50 mg-25 mg oral [place] tablet) , 45 tabs 1 tabs Oral 20 mg 1 simvastatin(simv 4 014 tabs, Oral, astatin 20 mg Bedtime (once a oral tablet) day), [place] , 90 tabs See atenolol-chlorth 4 015 Instructions, alidone(atenolol 0.5 tabs Oral -chlorthalidone Daily. Fax to 50 mg-25 mg oral [place] tablet) , 45 tabs, 3 Refill(s) 1 tabs Oral 20 mg 1 simvastatin(simv 4 014 tabs, Oral, astatin 20 mg Bedtime (once a oral tablet) day), [place] , 90 tabs 1 tabs Oral 15 mg 15 meloxicam(meloxi 4 015 mg=1 tabs, cam 15 mg oral Oral, Daily, tablet) Fax to , 90 tabs, 3 Refill(s) 1 tabs Oral 50 mg 50 atenolol(atenolo 4 015 mg=1 tabs, l 50 mg oral Oral, Daily, 90 tablet) tabs, 3 Refill(s) 1 tabs Oral 40 mg 1 simvastatin(simv 4 014 tabs, Oral, astatin 40 mg Bedtime (once a oral tablet) day), 30 tabs Oral 500 mg 500 glucosamine(gluc 4 016 mg, Oral, Daily osamine) Oral 0.8 mg 0.8 folic acid(folic 4 017 mg, Oral, acid) Bedtime (once a day), 0 Refill(s) 1 caps Oral 500 mg 1 cephalexin(Kefle 4 014 caps, Oral, x 500 mg oral q8hr, 30 caps capsule) 1 tabs Oral 40 mg 40 simvastatin(simv 4 015 mg=1 tabs, astatin 40 mg Oral, Bedtime oral tablet) (once a day), 90 tabs, 3 Refill(s) 0.5 mL IntraMuscular 0.5 pneumococcal 5 015 mL, 13-valent IntraMuscular, conjugate Once vaccine(pneumoco ccal 13-valent conjugate vaccine) Oral 50 mg 50 atenolol(atenolo 6 016 mg, Oral, l) Bedtime (once a day), 0 Refill(s) 0.5 tabs Oral 0.5 atenolol-chlorth 6 016 tabs, Oral, alidone(atenolol Daily, 0 -chlorthalidone Refill(s) 50 mg-25 mg oral tablet) 1 drops Eye-Both 1 naphazoline-phen 6 016 drops, iramine Eye-Both, BID, ophthalmic(Naphc 1-2 times on-A) daily, PRN: Seasonal Allergy Symptoms, 0 Refill(s) Oral 400 mg 400 ibuprofen(ibupro 6 016 mg, Oral, fen) Daily, PRN: as needed for arthritis, 0 Refill(s) 1 tabs Oral 20 mg 20 atorvastatin(arturo 6 016 mg=1 tabs, rvastatin) Oral, Bedtime (once a day) 2 mL IV Push 4 mg 4 ondansetron(Zofr 6 016 mg=2 mL, IV an) Push, q6hr, PRN: Nausea Al 30 mL Oral 30 hydroxide/Mg 6 016 mL, Oral, q6hr, hydroxide/simeth PRN: icone(Maalox GERD/Heartburn Advanced Maximum Strength oral suspension) 1 packets Oral 17 g 17 polyethylene 6 016 g=1 packets, glycol Oral, Daily, 3350(MiraLax) PRN: Constipation 1 tabs Oral 500 mg 500 calcium 6 016 mg=1 tabs, carbonate(Tums) Oral, q4hr, PRN: GERD/Heartburn 1 tabs Oral 25 mg 25 diphenhydrAMINE( 6 016 mg=1 tabs, Benadryl) Oral, q6hr, PRN: Pruritus/Itchin g 1 tabs Oral 8.6 mg 8.6 senna(Senokot) 6 016 mg=1 tabs, Oral, Daily, PRN: Constipation 2 tabs Oral 650 mg 650 acetaminophen(ac 6 016 mg=2 tabs, etaminophen) Oral, q4hr, PRN: Other (See Comment) 1 tabs Oral 5 mg 5 zolpidem(Ambien) 6 016 mg=1 tabs, Oral, Bedtime (once a day), PRN: Insomnia 1 tabs Oral 1 docusate-senna(S 6 016 tabs, Oral, enokot S 50 Daily, PRN: mg-8.6 mg oral Constipation tablet) 1 mL IV Push 2 mg 2 morphine(morphin 6 016 mg=1 mL, IV e) Push, q5min, PRN: Angina/Chest Pain 1 tabs SubLingual 0.4 mg 0.4 nitroglycerin(ni 6 016 mg=1 tabs, troglycerin) SubLingual, q5min, PRN: Angina/Chest Pain 1 tabs Oral 81 mg 81 aspirin(aspirin) 6 016 mg=1 tabs, Oral, Daily 0.4 mL SubCutaneous 40 mg 40 enoxaparin(Loven 6 016 mg=0.4 mL, ox) SubCutaneous, Daily 1 tabs Oral 2.5 mg 2.5 lisinopril(lisin 6 016 mg=1 tabs, opril) Oral, Daily 1 tabs Oral 50 mg 50 atenolol(atenolo 6 016 mg=1 tabs, l) Oral, Bedtime (once a day) 2 mL IV Push 10 mg 10 metoclopramide(R 6 016 mg=2 mL, IV eglan) Push, q6hr, PRN: Nausea 1 tabs Oral 2 mg 2 diazepam(Valium) 6 016 mg=1 tabs, Oral, q4hr, PRN: Anxiety 1 tabs Oral 90 mg 90 ticagrelor(Brili 6 016 mg=1 tabs, nta) Oral, BID 1 tabs Oral 2.5 mg 2.5 lisinopril(lisin 6 017 mg=1 tabs, opril 2.5 mg Oral, Daily, 30 oral tablet) tabs, 11 Refill(s) 1 tabs Oral 81 mg 81 aspirin(aspirin 6 mg=1 tabs, 81 mg oral Oral, Daily, 30 delayed release tabs, 0 tablet) Refill(s) 1 tabs SubLingual 0.4 mg 0.4 nitroglycerin(ni 6 mg=1 tabs, troglycerin 0.4 SubLingual, mg sublingual q5min, PRN: tablet) Angina/Chest Pain, 25 tabs, 3 Refill(s) Oral 50 mg 50 atenolol(atenolo 6 mg, Oral, l 50 mg oral Bedtime (once a tablet) day), 30 tabs, 11 Refill(s) 2 mL IV Push 4 mg 4 ondansetron(Zofr 6 016 mg=2 mL, IV an) Push, q30min, PRN: Nausea or Vomiting 4 tabs Oral 324 mg 324 aspirin(aspirin) 6 016 mg=4 tabs, Oral, Once, PRN: Other (See Comment) 2 mL IV Push 4 mg 4 morphine(morphin 6 016 mg=2 mL, IV e) Push, Once Oral chlorpheniramine 6 016 Oral, Bedtime (chlorpheniramin (once a day), e) OTC, PRN: as needed for allergy symptoms, 0 Refill(s) Oral cetirizine(cetir 6 016 Oral, Bedtime izine) (once a day), OTC, PRN: as needed for allergy symptoms, 0 Refill(s) Oral fexofenadine(fex 6 016 Oral, Bedtime ofenadine) (once a day), OTC, 0 Refill(s) Oral loratadine(lorat 6 016 Oral, Bedtime adine) (once a day), OTC, PRN: as needed for allergy symptoms, 0 Refill(s) 0.7 mL SubCutaneous 70 mg 70 enoxaparin(Loven 6 016 mg=0.7 mL, ox) SubCutaneous, BID 2 tabs Oral 0.8 mg 0.8 folic acid(folic 6 016 mg=2 tabs, acid) Oral, Bedtime (once a day) 1 tabs Oral 2.5 mg 2.5 lisinopril(lisin 6 016 mg=1 tabs, opril) Oral, Daily 1 tabs Oral 20 mg 20 atorvastatin(arturo 6 016 mg=1 tabs, rvastatin) Oral, Bedtime (once a day) 2 tabs Oral 15 mg 15 meloxicam(meloxi 6 016 mg=2 tabs, cam) Oral, Daily 1 tabs Oral 81 mg 81 aspirin(aspirin) 6 016 mg=1 tabs, Oral, Daily 1 tabs Oral 90 mg 90 ticagrelor(ticag 6 016 mg=1 tabs, relor) Oral, BID 1 tabs Oral 50 mg 50 atenolol(atenolo 6 016 mg=1 tabs, l) Oral, Bedtime (once a day) 1 tabs Oral 400 mg 400 ibuprofen(ibupro 6 016 mg=1 tabs, fen) Oral, q6hr, PRN: Pain Mild (1-3) 1 mL IV Push 4 mg 4 morphine(morphin 6 016 mg=1 mL, IV e 4 mg/mL Push, q4hr, syringe 1 mL) PRN: Pain Severe (7-10) 1,000 mL IV 75 Sodium Chloride 6 016 mL/hr, IV 0.9%(sodium chloride 0.9% 1,000 mL) 2 mL IV Push 2 mg 2 midazolam(Versed 6 016 mg=2 mL, IV ) Push, q5min, PRN: Sedation 1 mL IV Push 50 mcg 50 fentaNYL(fentaNY 6 016 mcg=1 mL, IV L) Push, q5min, PRN: Sedation 1 tabs SubLingual 0.4 mg 0.4 nitroglycerin(Ni 6 016 mg=1 tabs, trostat 0.4 mg SubLingual, sublingual q5min, PRN: tablet) Angina/Chest Pain 6 mL Bolus IV 6,000 heparin(heparin 6 016 units 6,000 units=6 1000 units/mL mL, Bolus IV, injectable Once solution) 1 mL IV Push 2.5 mg 2.5 verapamil(verapa 6 016 mg=1 mL, IV mil) Push, Once 2 mL IV Push 10 mg 10 metoclopramide(R 6 016 mg=2 mL, IV eglan) Push, q6hr, PRN: Nausea 2 mL IV Push 4 mg 4 ondansetron(Zofr 6 016 mg=2 mL, IV an) Push, q6hr, PRN: Nausea 1 tabs Oral 2 mg 2 diazepam(Valium) 6 016 mg=1 tabs, Oral, q4hr, PRN: Anxiety 2 tabs Oral 650 mg 650 acetaminophen(ac 6 016 mg=2 tabs, etaminophen) Oral, q4hr, PRN: Pain Mild (1-3) 1 tabs Oral 81 mg 81 aspirin(aspirin) 6 016 mg=1 tabs, Oral, Daily 1 tabs Oral 90 mg 90 ticagrelor(Brili 6 016 mg=1 tabs, nta) Oral, BID 2 tabs Oral 15 mg 15 meloxicam(meloxi 6 016 mg=2 tabs, cam 7.5 mg oral Oral, Daily, 0 tablet) Refill(s) 2 mL IV Push 4 mg 4 ondansetron(Zofr 6 016 mg=2 mL, IV an) Push, q30min, PRN: Nausea or Vomiting 4 tabs Oral 324 mg 324 aspirin(aspirin) 6 016 mg=4 tabs, Oral, Once, PRN: Other (See Comment) 1 inch Topical 1 g 1 nitroglycerin(Ni 6 016 g=1 inch, tro-Bid) Topical, Once 2 mL IV Push 4 mg 4 ondansetron(Zofr 6 016 mg=2 mL, IV an) Push, Once 1 mL IV Push 50 mcg 50 fentaNYL(fentaNY 6 016 mcg=1 mL, IV L) Push, Once 2 mL IV Push 20 mg 20 famotidine(Pepci 6 016 mg=2 mL, IV d) Push, Once 5 mL IV Push 5 mg 5 metoprolol(metop 6 016 mg=5 mL, IV rolol tartrate 1 Push, Once mg/mL injectable solution) 0.5 mL IV Push 0.5 mg 0.5 HYDROmorphone(Di 6 016 mg=0.5 mL, IV laudid) Push, Once, PRN: Pain 1 tabs Oral 90 mg 90 ticagrelor(ticag 6 016 mg=1 tabs, relor) Oral, BID 1 tabs Oral 20 mg 20 atorvastatin(arturo 6 016 mg=1 tabs, rvastatin) Oral, Bedtime (once a day) 1 tabs Oral 2.5 mg 2.5 lisinopril(lisin 6 016 mg=1 tabs, opril) Oral, Daily 1 tabs Oral 50 mg 50 atenolol(atenolo 6 016 mg=1 tabs, l) Oral, Daily 1 tabs Oral 81 mg 81 aspirin(aspirin) 6 016 mg=1 tabs, Oral, Daily 1 tabs Oral 20 mg 20 famotidine(Pepci 6 016 mg=1 tabs, d) Oral, BID 2 mL IV Push 4 mg 4 ondansetron(Zofr 6 016 mg=2 mL, IV an) Push, q6hr, PRN: Nausea Al 30 mL Oral 30 hydroxide/Mg 6 016 mL, Oral, q6hr, hydroxide/simeth PRN: icone(Maalox GERD/Heartburn Advanced Maximum Strength oral suspension) 1 packets Oral 17 g 17 polyethylene 6 016 g=1 packets, glycol Oral, Daily, 3350(MiraLax) PRN: Constipation 1 tabs Oral 500 mg 500 calcium 6 016 mg=1 tabs, carbonate(Tums) Oral, q4hr, PRN: GERD/Heartburn 1 tabs Oral 25 mg 25 diphenhydrAMINE( 6 016 mg=1 tabs, Benadryl) Oral, q6hr, PRN: Pruritus/Itchin g 1 tabs Oral 8.6 mg 8.6 senna(Senokot) 6 016 mg=1 tabs, Oral, Daily, PRN: Constipation 2 tabs Oral 650 mg 650 acetaminophen(ac 6 016 mg=2 tabs, etaminophen) Oral, q4hr, PRN: Other (See Comment) 1 tabs Oral 5 mg 5 zolpidem(Ambien) 6 016 mg=1 tabs, Oral, Bedtime (once a day), PRN: Insomnia 1 tabs Oral 1 docusate-senna(S 6 016 tabs, Oral, enokot S 50 Daily, PRN: mg-8.6 mg oral Constipation tablet) 1 tabs SubLingual 0.4 mg 0.4 nitroglycerin(Ni 6 016 mg=1 tabs, trostat 0.4 mg SubLingual, sublingual q5min, PRN: tablet) Angina/Chest Pain 0.4 mL SubCutaneous 40 mg 40 enoxaparin(Loven 6 016 mg=0.4 mL, ox) SubCutaneous, Daily 1 tabs Oral 40 mg 40 pantoprazole(Pro 6 016 mg=1 tabs, tonix) Oral, BID 10 mL Oral 1 g 1 sucralfate(Caraf 6 016 g=10 mL, Oral, ate) QID 1 tabs Oral 40 mg 40 pantoprazole(Pro 6 mg=1 tabs, tonix 40 mg oral Oral, BID, 60 delayed release tabs, 11 tablet) Refill(s) 10 mL Oral 1 g 1 sucralfate(Caraf 6 017 g=10 mL, Oral, ate 1 g/10 mL QID, for 30 oral suspension) days, 1,200 mL, 3 Refill(s) 1 tabs Oral 30 mg 30 isosorbide 6 017 mg=1 tabs, mononitrate(Imdu Oral, qPM, for r 30 mg oral 30 days, Start tablet, extended taking release) tomorrow, 03/03/16 do not crush or chew, 30 tabs, 11 Refill(s) 1 tabs Oral 25 mg 25 losartan(losarta 7 mg=1 tabs, n 25 mg oral Oral, Daily, 30 tablet) tabs, 0 Refill(s) 1 tabs Oral 50 mg 50 traMADol(traMADo 7 mg=1 tabs, l 50 mg oral Oral, q4hr, tablet) PRN: as needed for pain, 0 Refill(s) 0.5 mL IntraMuscular 0.5 pneumococcal 7 017 mL, 13-valent IntraMuscular, conjugate Once vaccine(pneumoco ccal 13-valent conjugate vaccine) 0.5 mL IntraMuscular 0.5 pneumococcal 7 017 mL, 23-polyvalent IntraMuscular, vaccine(pneumoco Once ccal 23-polyvalent vaccine) 1 tabs Oral 40 mg 40 atorvastatin(arturo 7 mg=1 tabs, rvastatin 40 mg Oral, Daily, 90 oral tablet) tabs, 1 Refill(s) Problems Date Dx Attending Type Code Diagnosis Diagnosed By Coded 07/23/2014 Reason 780.4 DIZZINESS AND GIDDINESS 09/22/2015 Mone Henry Final H90.3 Sensorineural hearing loss, bilateral 10/22/2015 Noe Null S Final M47.817 Spondylosis without myelopathy or radiculopathy, lumbosacral region 10/22/2015 Noe Null S Final M48.06 Spinal stenosis, lumbar region 10/22/2015 Noe Null S Final M51.26 Other intervertebral disc displacement, lumbar region 10/22/2015 Noe Null S Final M54.5 Low back pain 02/28/2016 Coy,, Final E78.5 Hyperlipidemia, Parker unspecified 02/28/2016 Coy,, Final I10 Essential (primary) Parker hypertension 02/28/2016 Coy,, Final 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 02/28/2016 Coy, Admitting R07.9 Chest pain, [place] unspecified 02/28/2016 Coy,, Final I21.4 Non-ST elevation Parker (NSTEMI) myocardial infarction 03/01/2016 Coy, Admitting R07.9 Parker 03/03/2016 Coy,, Final E78.00 Pure Parker hypercholesterolemia , unspecified 03/03/2016 Amirani,, Final I10 Essential (primary) [place] hypertension 03/03/2016 Amirani,, Final I21.4 Non-ST elevation Parker (NSTEMI) myocardial infarction 03/03/2016 Amirani,, Final I25.119 Atherosclerotic [place] heart disease of [place] coronary artery with unspecified an 03/03/2016 Amirani,, Final J30.9 Allergic rhinitis, [place] unspecified 03/03/2016 Amirani,, Reason R07.9 Chest pain, [place] unspecified 03/08/2016 Amirani,, Final E78.5 Hyperlipidemia, [place] unspecified 03/08/2016 Amirani,, Final F43.9 Reaction to severe [place] stress, unspecified 03/08/2016 Amirani,, Final I10 Essential (primary) [place] hypertension 03/08/2016 Amirani,, Final 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 03/08/2016 Amirani,, Final 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 03/08/2016 Amirani,, Final M51.36 Other intervertebral [place] disc degeneration, lumbar region 03/08/2016 Amirani,, Reason R07.9 Chest pain, [place] unspecified 03/08/2016 Amirani,, Final R10.13 Epigastric pain Parker 03/08/2016 Amirani,, Final Z95.5 Presence of coronary [place] angioplasty implant and graft 09/10/2016 Darek Salazar Final H90.3 Sensorineural S hearing loss, bilateral 10/01/2016 Rasheed, Final E78.5 Hyperlipidemia, Ofelia M unspecified 10/01/2016 Rasheed, Final I25.10 Atherosclerotic Ofelia M heart disease of [place] coronary artery without angina pectoris 10/01/2016 Rasheed, Final K21.9 Gastro-esophageal Ofelia M reflux disease without esophagitis 10/01/2016 Rasheed, Final M54.5 Low back pain Ofelia M 10/01/2016 Rasheed, Final R73.03 Prediabetes Ofelia M 10/25/2016 [place]banks, Final E78.5 Hyperlipidemia, Ofelia M unspecified 10/25/2016 [place], Final I25.10 Atherosclerotic Ofelia M heart disease of [place] coronary artery without angina pectoris 10/25/2016 [place], Final M19.90 Unspecified Ofelia M osteoarthritis, unspecified site 11/12/2016 Luinstra, Final E78.5 Hyperlipidemia, Huy W unspecified 11/12/2016 Luinstra, Final I10 Essential (primary) Huy W hypertension 11/12/2016 Luinstra, Final I25.10 Atherosclerotic Huy W heart disease of [place] coronary artery without angina pectoris 11/12/2016 Luinstra, Final K21.9 Gastro-esophageal Huy W reflux disease without esophagitis 11/12/2016 Luinstra, Final M19.90 Unspecified Huy W osteoarthritis, unspecified site 11/12/2016 Luinstra, Final M51.36 Other intervertebral Huy W disc degeneration, lumbar region 11/12/2016 Luinstra, Final R73.09 Other abnormal Huy W glucose 12/09/2016 Fortino, Final H90.3 Sensorineural Blake K hearing loss, bilateral 02/03/2017 Rufusbanks, Final E78.5 Hyperlipidemia, Ofelia M unspecified 02/03/2017 [place], Final I10 Essential (primary) Ofelia M hypertension 02/03/2017 [place], Final I25.10 Atherosclerotic Ofelia M heart disease of [place] coronary artery without angina pectoris 02/03/2017 [place], Final K21.9 Gastro-esophageal Ofelia M reflux disease without esophagitis 02/03/2017 Rufusbanks, Final K82.8 Other specified Ofelia M diseases of gallbladder 02/03/2017 [place], Final M19.90 Unspecified Ofelia M osteoarthritis, unspecified site 02/03/2017 [place], Final M54.5 Low back pain Ofelia M 02/03/2017 Rachels, Final N40.0 Benign prostatic Ofelia M hyperplasia without lower urinary tract symptoms 02/03/2017 Rufusbanks, Final R07.89 Other chest pain Ofelia M 02/03/2017 Rufusbanks, Final R73.03 Prediabetes Ofelia M Procedures Code Description [place] [address] Office or other 10/22/2015 outpatient visit for the evaluation and management of an established patient, which requires at least 2 of these 3 elaine components: An expanded problem focused history; An expanded prob 54871 Collection of 01/09/2016 venous blood by venipuncture 20587 Comprehensive 01/09/2016 metabolic panel This panel must include the following: Albumin (50752) Bilirubin, total (95546) Calcium, total (01344) Carbon dioxide (bicarbonate) (79288) Chloride (55377) Creatinine (8 46434 Lipid panel This 01/09/2016 panel must include the following: Cholesterol, serum, total (04233) Lipoprotein, direct measurement, high density cholesterol (HDL cholesterol) (67730) Triglycerides (27916)..... 57393 Hemoglobin; 01/09/2016 glycosylated (A1C) 94455 Prostate 01/09/2016 specific antigen (PSA); total 98493 Office or other 01/09/2016 outpatient visit for the evaluation and management of an established patient, which requires at least 2 of these 3 elaine components: A detailed history; A detailed examination; Medical d Fluoroscopy of 02/23/2016 [id number] Multiple Coronary Arteries using Low Osmolar Contrast 15063 Pure tone 09/10/2016 audiometry (threshold); air only.. 75001 Speech 09/10/2016 audiometry threshold; with speech recognition.. 24906 Collection of 10/01/2016 venous blood by venipuncture 04677 Comprehensive 10/01/2016 metabolic panel This panel must include the following: Albumin (20073) Bilirubin, total (03026) Calcium, total (75459) Carbon dioxide (bicarbonate) (74350) Chloride (64432) Creatinine (8 09235 Lipid panel This 10/01/2016 panel must include the following: Cholester 43277 Hemoglobin; 10/01/2016 glycosylated (A1C) 17391 Immunization 10/01/2016 administration (includes percutaneous, intradermal, subcutaneous, or intramuscular injections); 1 vaccine (single or combination vaccine/toxoid).. 42220 Pneumococcal 10/01/2016 polysaccharide vaccine, 23-valent (PPSV23), adult or immunosuppressed patient dosage, when administered to individuals 2 years or older, for subcutaneous or intramuscular use 80055 Office or other 10/01/2016 outpatient visit for the evaluation and management of an established patient, which requires at least 2 of these 3 elaine components: A detailed history; A detailed examination; Medical d 27530 Office or other 10/25/2016 outpatient visit for the evaluation and management of an established patient, which requires at least 2 of these 3 elaine components: An expanded problem focused history; An expanded prob Office or other 11/12/2016 outpatient visit for the evaluation and management of an established patient, which requires at least 2 of these 3 elaine components: A detailed history; A detailed examination; Medical d 24043 Office or other 02/03/2017 outpatient visit for the evaluation and management of an established patient, which requires at least 2 of these 3 elaine components: A detailed history; A detailed examination; Medical d 72016 Collection of 02/04/2017 venous blood by venipuncture 06618 Comprehensive 02/04/2017 metabolic panel This panel must include the following: Albumin (31435) Bilirubin, total (81658) Calcium, total (35716) Carbon dioxide (bicarbonate) (40456) Chloride (41367) Creatinine (8 80597 Lipid panel This 02/04/2017 panel must include the following: Cholester Results Test Result Range CBC With Platelet and Differential - 02/21/16 01:28 Absolute Basophils 0.01 10*3 0.00-0.20 Absolute Eosinophils 0.03 10*3 0.00-0.50 Absolute Lymphocytes 0.67 10*3 0.80-3.30 Absolute Monocytes 0.68 10*3 0.30-1.00 Absolute Neutrophils 7.64 10*3 1.90-7.00 Basophils 0 % 0-2 Eosinophils 0 % 0-4 HCT 38.7 % 42.0-52.0 HGB 13.0 g/dL 14.0-18.0 Immature Granulocytes 0.1 % 0.0-1.0 Lymphocytes 7 % 20-46 MCH 29.5 pg 27.0-32.0 MCHC 33.6 g/dL 32.0-36.0 MCV 87.8 fL 82.0-99.0 Monocytes 8 % 4-11 MPV 9.8 fL 9.4-12.3 Neutrophils 85 % 51-75 Nucleated RBC Automated 0.0 /100 WBC Platelet Count 196 K/uL 150-400 RBC 4.41 10*6/uL 4.60-6.20 RDW 12.9 % 11.5-14.5 WBC 9.0 K/uL 4.8-10.8 Magnesium - 02/21/16 01:28 Magnesium 2.5 mg/dL 1.8-2.5 Comprehensive Metabolic Panel (CMP) - 02/21/16 01:28 Albumin 3.5 g/dL 3.5-4.8 Alkaline Phosphatase 47 U/L 26-104 ALT (SGPT) 23 U/L 17-63 Anion Gap 6 NA 3-20 AST (SGOT) 29 U/L 15-41 Bilirubin Total 0.9 mg/dL 0.2-1.2 BUN 8 mg/dL 4-20 Calcium 8.9 mg/dL 8.6-10.0 Chloride 102 mEq/L 99-109 CO2 28 mEq/L 22-32 Creatinine 0.72 mg/dL 0.64-1.27 Globulin 2.4 g/dL 1.9-4.3 Glucose 156 mg/dL 70-100 Potassium 3.8 mEq/L 3.6-5.1 Protein 5.9 g/dL 6.1-7.9 Sodium 136 mEq/L 136-144 Urine Microscopic - 09/10/16 11:10 Bacteria Rare NA Epithelial Cells 0 /HPF Microscop. Exam Perf. performed NA WBC, Urine 2 /HPF 0-4 eGFR - 02/21/16 01:28 eGFR >60 NA >60 Troponin - 02/21/16 01:28 Troponin 0.20 ng/mL <0.06 Lipid Panel - 02/21/16 01:28 Cardiac Risk 4.1 0.0-5.7 Cholesterol 168 mg/dL 0-200 HDL Cholesterol 41 mg/dL >40 LDL Cholesterol 98 mg/dL 0-100 Triglycerides 144 mg/dL 0-150 VLDL Cholesterol 29 mg/dL 0-30 TSH with Reflex Free T4 - 02/21/16 01:28 TSH with Reflex Free T4 1.10 uIU/mL 0.35-5.50 Glucose NPT - 02/21/16 06:19 Glucose NPT 106 mg/dL 70-100 Troponin - 02/21/16 07:14 Troponin 0.17 ng/mL <0.06 Glucose NPT - 02/21/16 11:23 Glucose NPT 129 mg/dL 70-100 Troponin - 02/21/16 13:21 Troponin 0.11 ng/mL <0.06 Glucose NPT - 02/21/16 15:49 Glucose NPT 101 mg/dL 70-100 Glucose NPT - 02/21/16 21:27 Glucose NPT 144 mg/dL 70-100 Glucose NPT - 02/22/16 05:54 Glucose NPT 110 mg/dL 70-100 CBC With Platelet No Differential - 02/22/16 05:57 HCT 42.4 % 42.0-52.0 HGB 14.1 g/dL 14.0-18.0 MCH 29.7 pg 27.0-32.0 MCHC 33.3 g/dL 32.0-36.0 MCV 89.3 fL 82.0-99.0 MPV 10.1 fL 9.4-12.3 Platelet Count 192 K/uL 150-400 RBC 4.75 10*6/uL 4.60-6.20 RDW 13.2 % 11.5-14.5 WBC 5.0 K/uL 4.8-10.8 Basic Metabolic Panel (BMP) - 02/22/16 05:57 Anion Gap 5 NA 3-20 BUN 9 mg/dL 4-20 Calcium 9.2 mg/dL 8.6-10.0 Chloride 105 mEq/L 99-109 CO2 28 mEq/L 22-32 Creatinine 0.83 mg/dL 0.64-1.27 Glucose 121 mg/dL 70-100 Potassium 4.4 mEq/L 3.6-5.1 Sodium 138 mEq/L 136-144 eGFR - 02/22/16 05:57 eGFR >60 NA >60 Troponin - 02/22/16 05:57 Troponin 0.09 ng/mL <0.06 Glucose NPT - 02/22/16 12:33 Glucose NPT 122 mg/dL 70-100 Glucose NPT - 02/22/16 17:19 Glucose NPT 98 mg/dL 70-100 Glucose NPT - 02/22/16 21:06 Glucose NPT 124 mg/dL 70-100 Glucose NPT - 02/23/16 06:27 Glucose NPT 106 mg/dL 70-100 CBC With Platelet No Differential - 02/23/16 06:28 HCT 43.7 % 42.0-52.0 HGB 14.7 g/dL 14.0-18.0 MCH 29.9 pg 27.0-32.0 MCHC 33.6 g/dL 32.0-36.0 MCV 88.8 fL 82.0-99.0 MPV 10.6 fL 9.4-12.3 Platelet Count 221 K/uL 150-400 RBC 4.92 10*6/uL 4.60-6.20 RDW 13.1 % 11.5-14.5 WBC 4.9 K/uL 4.8-10.8 Basic Metabolic Panel (BMP) - 02/23/16 06:28 Anion Gap 5 NA 3-20 BUN 9 mg/dL 4-20 Calcium 9.5 mg/dL 8.6-10.0 Chloride 104 mEq/L 99-109 CO2 28 mEq/L 22-32 Creatinine 0.73 mg/dL 0.64-1.27 Glucose 114 mg/dL 70-100 Potassium 4.2 mEq/L 3.6-5.1 Sodium 137 mEq/L 136-144 eGFR - 02/23/16 06:28 eGFR >60 NA >60 Urinalysis with reflex microscopic - 02/23/16 08:07 Appearance Clear NA Bilirubin Negative NA Negative Blood Negative NA Negative Color Yellow NA Glucose, Urine Negative Negative Ketones Negative Negative Leukocyte Esterase Negative NA Negative Nitrites Negative NA Negative pH 7.0 NA 5.0-8.0 Protein Negative NA Negative Specific [place] 1.010 NA 1.003-1.030 UA Collection type Clean Catch NA Urobilinogen Negative mg/dL <1.0 Glucose NPT - 02/23/16 11:54 Glucose NPT 108 mg/dL 70-100 Glucose NPT - 02/23/16 18:19 Glucose NPT 232 mg/dL 70-100 Glucose NPT - 02/23/16 22:29 Glucose NPT 83 mg/dL 70-100 CBC With Platelet No Differential - 02/24/16 05:08 HCT 43.6 % 42.0-52.0 HGB 14.7 g/dL 14.0-18.0 MCH 29.3 pg 27.0-32.0 MCHC 33.7 g/dL 32.0-36.0 MCV 87.0 fL 82.0-99.0 MPV 10.2 fL 9.4-12.3 Platelet Count 176 K/uL 150-400 RBC 5.01 10*6/uL 4.60-6.20 RDW 13.1 % 11.5-14.5 WBC 6.9 K/uL 4.8-10.8 Basic Metabolic Panel (BMP) - 02/24/16 05:08 Anion Gap 9 NA 3-20 BUN 9 mg/dL 4-20 Calcium 9.2 mg/dL 8.6-10.0 Chloride 106 mEq/L 99-109 CO2 24 mEq/L 22-32 Creatinine 0.67 mg/dL 0.64-1.27 Glucose 103 mg/dL 70-100 Potassium 4.2 mEq/L 3.6-5.1 Sodium 139 mEq/L 136-144 eGFR - 02/24/16 05:08 eGFR >60 NA >60 Glucose NPT - 02/24/16 06:39 Glucose NPT 115 mg/dL 70-100 Troponin - 02/26/16 08:27 Troponin 0.38 ng/mL <0.06 Glucose NPT - 02/26/16 11:44 Glucose NPT 102 mg/dL 70-100 Troponin - 02/26/16 13:48 Troponin 0.38 ng/mL <0.06 Glucose NPT - 02/26/16 16:51 Glucose NPT 121 mg/dL 70-100 Troponin - 02/26/16 19:48 Troponin 0.38 ng/mL <0.06 Glucose NPT - 02/26/16 22:07 Glucose NPT 101 mg/dL 70-100 CBC With Platelet No Differential - 02/27/16 05:39 HCT 42.1 % 42.0-52.0 HGB 13.9 g/dL 14.0-18.0 MCH 29.5 pg 27.0-32.0 MCHC 33.0 g/dL 32.0-36.0 MCV 89.4 fL 82.0-99.0 MPV 10.6 fL 9.4-12.3 Platelet Count 209 K/uL 150-400 RBC 4.71 10*6/uL 4.60-6.20 RDW 13.3 % 11.5-14.5 WBC 4.9 K/uL 4.8-10.8 Basic Metabolic Panel (BMP) - 02/27/16 05:39 Anion Gap 5 NA 3-20 BUN 9 mg/dL 4-20 Calcium 9.2 mg/dL 8.6-10.0 Chloride 105 mEq/L 99-109 CO2 28 mEq/L 22-32 Creatinine 0.88 mg/dL 0.64-1.27 Glucose 121 mg/dL 70-100 Potassium 4.4 mEq/L 3.6-5.1 Sodium 138 mEq/L 136-144 eGFR - 02/27/16 05:39 eGFR >60 NA >60 Glucose NPT - 02/27/16 06:27 Glucose NPT 112 mg/dL 70-100 Glucose NPT - 02/27/16 11:32 Glucose NPT 110 mg/dL 70-100 Glucose NPT - 02/27/16 18:00 Glucose NPT 95 mg/dL 70-100 Glucose NPT - 02/27/16 22:17 Glucose NPT 119 mg/dL 70-100 Glucose NPT - 02/28/16 05:58 Glucose NPT 108 mg/dL 70-100 CBC With Platelet No Differential - 02/28/16 05:59 HCT 41.3 % 42.0-52.0 HGB 13.9 g/dL 14.0-18.0 MCH 29.6 pg 27.0-32.0 MCHC 33.7 g/dL 32.0-36.0 MCV 87.9 fL 82.0-99.0 MPV 10.6 fL 9.4-12.3 Platelet Count 225 K/uL 150-400 RBC 4.70 10*6/uL 4.60-6.20 RDW 12.9 % 11.5-14.5 WBC 5.4 K/uL 4.8-10.8 Basic Metabolic Panel (BMP) - 02/28/16 05:59 Anion Gap 6 NA 3-20 BUN 12 mg/dL 4-20 Calcium 9.0 mg/dL 8.6-10.0 Chloride 106 mEq/L 99-109 CO2 26 mEq/L 22-32 Creatinine 0.84 mg/dL 0.64-1.27 Glucose 117 mg/dL 70-100 Potassium 4.0 mEq/L 3.6-5.1 Sodium 138 mEq/L 136-144 eGFR - 02/28/16 05:59 eGFR >60 NA >60 Glucose NPT - 02/28/16 11:28 Glucose NPT 108 mg/dL 70-100 CBC With Platelet No Differential - 03/02/16 04:20 HCT 40.7 % 42.0-52.0 HGB 13.3 g/dL 14.0-18.0 MCH 29.1 pg 27.0-32.0 MCHC 32.7 g/dL 32.0-36.0 MCV 89.1 fL 82.0-99.0 MPV 10.7 fL 9.4-12.3 Platelet Count 237 K/uL 150-400 RBC 4.57 10*6/uL 4.60-6.20 RDW 13.4 % 11.5-14.5 WBC 7.4 K/uL 4.8-10.8 Troponin - 03/02/16 04:20 Troponin <0.05 ng/mL <0.06 Basic Metabolic Panel (BMP) - 03/02/16 04:20 Anion Gap 6 NA 3-20 BUN 10 mg/dL 4-20 Calcium 9.2 mg/dL 8.6-10.0 Chloride 106 mEq/L 99-109 CO2 26 mEq/L 22-32 Creatinine 0.76 mg/dL 0.64-1.27 Glucose 136 mg/dL 70-100 Potassium 4.4 mEq/L 3.6-5.1 Sodium 138 mEq/L 136-144 Magnesium - 03/02/16 04:20 Magnesium 2.1 mg/dL 1.8-2.5 eGFR - 03/02/16 04:20 eGFR >60 NA >60 Lipase - 03/02/16 04:20 Lipase 34 U/L 8-48 Hepatic Function Panel - 03/02/16 04:20 Albumin 3.5 g/dL 3.5-4.8 Alkaline Phosphatase 54 U/L 26-104 ALT (SGPT) 99 U/L 17-63 AST (SGOT) 173 U/L 15-41 Bilirubin Direct 0.1 mg/dL 0.0-0.2 Bilirubin Indirect 0.5 mg/dL 0.0-1.0 Bilirubin Total 0.6 mg/dL 0.2-1.2 Protein 6.0 g/dL 6.1-7.9 Troponin - 03/02/16 13:22 Troponin <0.05 ng/mL <0.06 Lipid Panel - 10/01/16 10:07 Cardiac Risk 5.1 0.0-5.7 Cholesterol 189 mg/dL 0-199 HDL Cholesterol 37 mg/dL 40-84 LDL Cholesterol 131 mg/dL 0-130 Triglycerides 106 mg/dL 0-149 VLDL Cholesterol 21 mg/dL 0-28 Comprehensive Metabolic Panel (CMP) - 10/01/16 10:07 Albumin 4.1 g/dL 3.4-4.8 Alkaline Phosphatase 67 U/L 40-150 ALT (SGPT) 22 U/L 0-55 Anion Gap 8 mEq/L 3-20 AST (SGOT) 23 U/L 5-34 Bilirubin Total 0.9 mg/dL 0.2-1.2 BUN 14 mg/dL 8-26 Calcium 9.5 mg/dL 8.4-10.2 Chloride 105 mEq/L 99-111 CO2 26 mEq/L 23-31 Creatinine 0.81 mg/dL 0.72-1.25 Globulin 2.4 g/dL 1.8-4.0 Glucose 110 mg/dL 70-99 Potassium 4.2 mEq/L 3.5-5.2 Protein 6.5 g/dL 6.0-7.6 Sodium 139 mEq/L 135-144 eGFR - 10/01/16 10:07 eGFR >60 mL/min >60 Hemoglobin A1C - 10/01/16 10:07 Hemoglobin A1C 5.9 % 4.1-5.6 Estimated Average Glucose - 10/01/16 10:07 Estimated Average Glucose 122.6 mg/dL Lipid Panel - 02/04/17 07:50 Cardiac Risk 3.8 0.0-5.7 Cholesterol 141 mg/dL 0-199 HDL Cholesterol 37 mg/dL 40-84 LDL Cholesterol 87 mg/dL 0-130 Triglycerides 86 mg/dL 0-149 VLDL Cholesterol 17 mg/dL 0-28 Comprehensive Metabolic Panel (CMP) - 02/04/17 07:50 Albumin 4.0 g/dL 3.4-4.8 Alkaline Phosphatase 68 U/L 40-150 ALT (SGPT) 25 U/L 0-55 Anion Gap 7 mEq/L 3-20 AST (SGOT) 22 U/L 5-34 Bilirubin Total 0.4 mg/dL 0.2-1.2 BUN 14 mg/dL 8-26 Calcium 9.6 mg/dL 8.4-10.2 Chloride 110 mEq/L 99-111 CO2 25 mEq/L 23-31 Creatinine 0.78 mg/dL 0.72-1.25 Globulin 2.3 g/dL 1.8-4.0 Glucose 118 mg/dL 70-99 Potassium 4.7 mEq/L 3.5-5.2 Protein 6.3 g/dL 6.0-7.6 Sodium 142 mEq/L 135-144 eGFR - 02/04/17 07:50 eGFR >60 mL/min >60 Encounters ACCT No. Visit Discharge Status Pt. Type Provider Facility Loc./Unit Complaint Date/Time [id number] 07/27/2013 07/27/2013 CLS Outpatie 07:57:00 23:59:59 nt [id number] 05/28/2013 05/28/2013 CLS Outpatie 07:23:00 23:59:59 nt [id number] 05/21/2013 05/21/2013 CLS Outpatie 07:54:00 23:59:59 nt [id number] 04/02/2013 04/02/2013 CLS Outpatie 07:32:00 23:59:59 nt [id number] 03/01/2016 03/01/2016 CLS Outpatie Amirani,, Via [facility] chest pain 758 20:20:00 23:59:59 [facility] [id number] 02/26/2016 02/28/2016 DIS Outpatie Amirani,, [facility] cp 598 02:31:00 14:01:00 [facility] [id number] 02/20/2016 02/24/2016 DIS Inpatien Amirani,, [facility] Chest Pain 363 23:32:00 15:54:00 [facility] [id number] 10/02/2016 Document [id number] 05:16:02 Registra tion [id number] 03/03/2016 Document [id number] 05:17:12 Registra tion [id number] 03/02/2016 Document [id number] 05:17:43 Registra tion [id number] 02/29/2016 Document [id number] 05:16:23 Registra tion [id number] 02/28/2016 Document [id number] 05:16:15 Registra tion [id number] 02/27/2016 Document [id number] 05:16:51 Registra tion [id number] 02/26/2016 Document [id number] 05:17:49 Registra tion [id number] 02/25/2016 Document [id number] 05:17:46 Registra tion [id number] 02/24/2016 Document [id number] 05:17:40 Registra tion [id number] 02/22/2016 Document [id number] 05:16:08 Registra tion [id number] 02/21/2016 Document [id number] 05:16:36 Registra tion [id number] 02/19/2015 Document [id number] 13:27:03 Registra tion [id number] 02/19/2015 Document [id number] 13:19:46 Registra tion [id number] 02/19/2015 Document [id number] 10:31:32 Registra tion [id number] 02/19/2015 Document [id number] 10:26:25 Registra tion [id number] 02/19/2015 Document [id number] 09:36:52 Registra tion [id number] 02/19/2015 Document [id number] 09:31:41 Registra tion [id number] 07/18/2014 Document 318 11:16:00 Registra tion [id number] 02/04/2017 02/04/2017 DIS Outpatie Hughbanks [facility] New lab 602 07:44:00 23:59:00 nt , Ofelia Thomas Lab [facility] [id number] 02/03/2017 02/03/2017 DIS Outpatie Hughbanks [facility] New med check 488 07:39:00 23:59:00 nt , Ofelia Thomas atorvastatin [facility] [id number] 12/09/2016 12/09/2016 DIS Outpatie Sunderlan [facility] FC MONE SWITCH 891 12:35:00 23:59:00 nt Blake sarmiento Audio OUT [facility] [id number] 11/12/2016 11/12/2016 DIS Outpatie Luinstra, Via [facility] New Est care 168 07:46:00 23:59:00 nt Huy De La Cruz [id number] 10/25/2016 10/25/2016 DIS Outpatie Hughbanks [facility] New FM DISCUSS MEDS 711 07:49:00 23:59:00 nt , Ofelia Thomas M Clinic [id number] 10/01/2016 10/01/2016 DIS Outpatie Hughbanks Via [facility] MED CHK 193 08:58:00 23:59:00 nt , Ofelia Thomas PAPERWORK M Clinic [id number] 09/10/2016 09/10/2016 DIS Outpatie Regehr, [facility] AN[facility]AL 753 08:30:00 23:59:00 nt Darek Thomas Audio [facility] [id number] 01/09/2016 01/09/2016 DIS Outpatie De La Cruz, Via [facility] TCPA physical 630 12:43:00 23:59:00 nt Jt Thomas and discuss Clinic pneumonia shot and colonoscopy [id number] 10/22/2015 10/22/2015 DIS Outpatie Chaka, Via [facility] 2 MO RCK 169 07:38:00 23:59:00 nt Noe S Martha PainMgt L/RADIO, NRN Clinic [id number] 09/22/2015 09/22/2015 [facility] 098 09:34:00 23:59:00 nt Mone Thomas Audio Clinic [id number] 08/20/2015 08/20/2015 DIS Outpatie John, Via [facility] LT L3-S1 110 07:12:00 23:59:00 nt Bhavesh Martha PainMgt RADIO, Clinic L/BPM/NRN/AUT H [id number] 08/04/2015 08/04/2015 DIS Outpatie Carl, Via [facility] EOT 832 12:30:00 23:59:00 nt Mone Thomas Audio MAY WANT 962S Clinic [id number] 07/30/2015 07/30/2015 DIS Outpatie Chaka, Via [facility] RCK 1 WK 060 07:43:00 23:59:00 nt Vanoohe S Martha PainMgt LUMBAR/NRN Clinic [id number] 07/21/2015 07/21/2015 DIS Outpatie John, Via [facility] LT L3-S1 MBB 051 08:38:00 23:59:00 nt Bhavesh Martha PainMgt W/DIFF, Clinic L/BPM/NRN/AUT H [id number] 07/21/2015 07/21/2015 DIS Outpatie Sunderlan Via [facility] EOT 771 08:36:00 23:59:00 nt d Blake Guzmani Audio MAY WANT 962S K Clinic [id number] 07/09/2015 07/09/2015 DIS Outpatie John, Via [facility] LT L3-S1 MBB, 010 12:42:00 23:59:00 nt Bhavesh Martha PainMgt L/BPM/NRN/AUT Clinic H [id number] 06/30/2015 06/30/2015 DIS Outpatie Chaka, Via [facility] RCK LUMBAR 123 15:03:00 23:59:00 nt Vanoohe S Martha PainMgt MRI Clinic RESULTS/NRN [id number] 06/16/2015 06/16/2015 DIS Outpatie Sunderlan [facility] HAF 758 09:52:00 23:59:00 nt dQuintonBlakejoesph Thomas Audio K Clinic [id number] 06/16/2015 06/16/2015 DIS Outpatie Chaka, Via [facility] RCK 2 MO 466 08:08:00 23:59:00 nt Vanoohe S Martha PainMgt LUMBAR/NRN Clinic [id number] 05/12/2015 05/12/2015 DIS Outpatie Regehr, Via [facility] Hearing eval 732 09:17:00 23:59:00 nt Darek S Martha Audio Clinic [id number] 04/16/2015 04/16/2015 CLS Outpatie John, Via [facility] LT L4-5/ L5-S1 418 11:51:00 23:59:59 nt Bhavesh Martha PainMgt FACET, Clinic L/BPM/NRN/NEE D PRECERT [id number] 04/08/2015 04/08/2015 DIS Outpatie Komarek, Via [facility] IC POSS UTI 380 17:18:00 23:59:00 nt George E Martha Clinic [id number] 04/04/2015 04/04/2015 CLS Outpatie De La Cruz, Via [facility] New FM DULL ACHE ON 612 09:31:00 23:59:59 nt Jt Thomas LEFT SIDE OF Clinic GROIN AND LEG AREA [id number] 04/04/2015 04/04/2015 DIS Outpatie Chaka, Via [facility] RCK 6 WK 579 07:27:00 23:59:00 nt Noe Lopez Martha PainMgt LUMBAR/NRN Clinic [id number] 02/20/2015 02/20/2015 DIS Outpatie John, Via [facility] LT 527 07:46:00 23:59:00 nt Bhavesh Martha PainMgt L4-5/TRANSL, Clinic L/NRN/AUTH [id number] 02/10/2015 02/10/2015 DIS Outpatie Chaka, Via [facility] RCK LBP/ NRN 153 14:25:00 23:59:00 nt Noe Lopez Martha PainMgt Clinic [id number] 12/02/2014 12/02/2014 DIS Outpatie Jono, Via [facility] New FM PHY 411 14:45:00 23:59:00 nt Jt Ayala Martha Clinic [id number] 03/27/2014 03/27/2014 DIS Outpatie Jono, Via [facility] New FM Med Check 171 08:14:00 23:59:00 nt Jt Guzmani Clinic [id number] 02/04/2017 Document [id number] 05:16:22 Registra tion [id number] 03/01/2016 Document 758 20:20:00 Registra tion [id number] 02/26/2016 Document 598 02:31:00 Registra tion [id number] 02/20/2016 Document 363 23:32:00 Registra tion
--- OUTSIDE RECORDS SUMMARY | 2017-04-20 09:04 | External Medical Summary | Referral Summary ---
:1955 Author Organization Via [facility] Address [address] [place] [address] Care Team Providers Name Role Phone De La CruzJt mills Primary Care Physician Encounter VC Date(s): 03/01/16 - 03/02/[address] [address] Discharge Diagnosis: CAD (coronary artery disease), [place] coronary artery Discharge Diagnosis: Acute epigastric pain Discharge Diagnosis: S/p primary angioplasty with coronary stent Discharge Diagnosis: Benign essential hypertension Discharge Disposition: 01-Home or Self Care Attending Physician: Parker Cespedes MD Admitting Physician: Parker Cespedes MD Vital Signs Most recent to oldest [Reference Range]: 1 Temperature Oral [35.8-37.3 degC] 36.7 degC (03/01/16 8:28 PM) Temperature Temporal Artery [36.3-37.8 degC] 36.5 degC (03/02/16 12:20 PM) Peripheral Pulse Rate [60-100 bpm] 71 bpm (03/02/16 6:37 PM) Heart Rate Monitored [60-100 bpm] 67 bpm (03/02/16 6:00 PM) Respiratory Rate [14-20 br/min] 19 br/min (03/02/16 6:00 PM) Blood Pressure [90-140/60-90 mmHg] 131/93 mmHg (03/02/16 6:37 PM) Mean Arterial Pressure, Cuff 109 mmHg (03/02/16 6:00 PM) SpO2 96 % (03/02/16 6:00 PM) Problem List Condition Effective Dates Status [...] Cardiac Output/ Ineffective Cardiac Perfusion Plan of [id number] added automatically by system based on initiation of Impaired Skin Integrity Plan of [id number] added automatically by system based on initiation of Knowledge Deficit Plan of [id number] added automatically by system based on initiation [...] tabs, 11 Refill(s) Start Date: 02/24/16 Status: OrderedCarafate 1 g/10 mL oral suspension 1 g 10 mL, Oral, QID, # 1,200 mL, 3 Refill(s) Start Date: 03/02/16 Stop Date: 06/30/16 Status: Orderedfolic acid 0.8 mg, Oral, Bedtime (once a day), 0 Refill(s) Start Date: 03/27/14 Status: OrderedGlucosamine Chondroitin Advanced oral tablet 1 tabs, Oral, Bedtime (once a day), 0 Refill(s) Start Date: 02/21/16 Status: OrderedImdur 30 mg oral tablet, extended release 30 mg 1 tabs, Oral, qPM, Start taking tomorrow, 03/03/16 do not crush or chew, # 30 tabs, 11 Refill(s) Start Date: 03/02/16 Stop Date: 02/25/17 Status: Orderedlisinopril 2.5 mg oral tablet 2.5 mg 1 tabs, Oral, Daily, # 30 tabs, 11 Refill(s) Start Date: 02/24/16 Status: Orderedmultivitamin 1 tabs, Oral, Bedtime (once a day), 0 Refill(s) Start Date: 12/13/13 Status: OrderedProtonix 40 mg oral delayed release tablet 40 mg 1 tabs, Oral, BID, # 60 tabs, 11 Refill(s) Start Date: 03/02/16 Status: Orderedsaw palmetto oral capsule 450 mg, Oral, Bedtime (once a day), 0 Refill(s) Start Date: 12/13/13 Status: Orderedsimvastatin 40 mg oral tablet 40 mg 1 tabs, Oral, Bedtime (once a day), # 90 tabs, 3 Refill(s), Pharmacy: [facility], 1 tabs Oral Bedtime (once a day) Start Date: 06/03/15 Status: OrderedStopain Extra Strength 1 matias, Topical, QID, as needed for pain, 0 Refill(s) Start Date: 02/21/16 Status: Ordered Results Hematology Most recent to oldest [Reference Range]: 1 WBC [4.8-10.8 10*3/uL] 7.4 10*3/uL (03/02/16 4:20 AM) RBC [4.60-6.20] 4.57 *LOW* (03/02/16 4:20 AM) Hgb [14.0-18.0 gm/dL] 13.3 gm/dL *LOW* (03/02/16 4:20 AM) Hct [42.0-52.0 %] 40.7 % *LOW* (03/02/16 4:20 AM) MCV [82.0-99.0 fL] 89.1 fL (03/02/16 4:20 AM) MCH [27.0-32.0 pg] 29.1 pg (03/02/16 4:20 AM) MCHC [32.0-36.0 gm/dL] 32.7 gm/dL (03/02/16 4:20 AM) RDW [11.5-14.5 %] 13.4 % (03/02/16 4:20 AM) Platelet [150-400 10*3/uL] 237 10*3/uL (03/02/16 4:20 AM) MPV [9.4-12.3 fL] 10.7 fL (03/02/16 4:20 AM) Immature Granulocytes [0.0-1.0 %] 0.3 % (03/01/16 8:47 PM) Neutrophils [51-75 %] 83 % *HI* (03/01/16 8:47 PM) Lymphocytes [20-46 %] 7 % *LOW* (03/01/16 8:47 PM) Monocytes [4-11 %] 8 % (03/01/16 8:47 PM) Eosinophils [0-4 %] 1 % (03/01/16 8:47 PM) Basophils [0-2 %] 0 % (03/01/16 8:47 PM) Neutro Absolute [1.90-7.00 10*3] 9.93 10*3 *HI* (03/01/16 8:47 PM) Lymph Absolute [0.80-3.30 10*3] 0.85 10*3 (03/01/16 8:47 PM) [place] Absolute [0.30-1.00 10*3] 1.00 10*3 (03/01/16 8:47 PM) Eos Absolute [0.00-0.50 10*3] 0.10 10*3 (03/01/16 8:47 PM) Baso Absolute [0.00-0.20 10*3] 0.02 10*3 (03/01/16 8:47 PM) Nucleated RBC Automated [0 /100 WBC] 0.0 /100 WBC (03/01/16 8:47 PM) Chemistry Most recent to oldest [Reference Range]: 1 Sodium Lvl [136-144 mEq/L] 138 mEq/L (03/02/16 4:20 AM) Potassium Lvl [3.6-5.1 mEq/L] 4.4 mEq/L (03/02/16 4:20 AM) Chloride [99-109 mEq/L] 106 mEq/L (03/02/16 4:20 AM) CO2 [22-32 mEq/L] 26 mEq/L (03/02/16 4:20 AM) AGAP [3-20] 6 (03/02/16 4:20 AM) BUN [4-20 mg/dL] 10 mg/dL (03/02/16 4:20 AM) Glucose Lvl [70-100 mg/dL] 136 mg/dL *HI* (03/02/16 4:20 AM) Creatinine Lvl [0.64-1.27 mg/dL] 0.76 mg/dL (03/02/16 4:20 AM) eGFR [>60] >60 1 (03/02/16 4:20 AM) Calcium Lvl [8.6-10.0 mg/dL] 9.2 mg/dL (03/02/16 4:20 AM) Albumin Lvl [3.5-4.8 gm/dL] 3.5 gm/dL (03/02/16 4:20 AM) Total Protein [6.1-7.9 gm/dL] 6.0 gm/dL *LOW* (03/02/16 4:20 AM) Globulin [1.9-4.3 gm/dL] 2.6 gm/dL (03/01/16 8:46 PM) ALT [17-63 U/L] 99 U/L *HI* (03/02/16 4:20 AM) AST [15-41 U/L] 173 U/L *HI* (03/02/16 4:20 AM) Alk Phos [26-104 U/L] 54 U/L (03/02/16 4:20 AM) Bili Total [0.2-1.2 mg/dL] 0.6 mg/dL 2 (03/02/16 4:20 AM) Bili Direct [0.0-0.2 mg/dL] 0.1 mg/dL (03/02/16 4:20 AM) Bili Indirect [0.0-1.0 mg/dL] 0.5 mg/dL (03/02/16 4:20 AM) Magnesium Lvl [1.8-2.5 mg/dL] 2.1 mg/dL (03/02/16 4:20 AM) Troponin [<0.06 ng/mL] <0.05 ng/mL (03/02/16 1:22 PM) Lipase Lvl [8-48 U/L] 34 U/L (03/02/16 4:20 AM) Troponin-POC Negative (03/01/16 11:02 PM) 1Result Comment: Multiply eGFR results by 1.21 for race.2Result Comment: Naproxen, specifically the metabolite O-desmethylnaproxen, may cause spurious elevation in Total Bilirubin levels. Immunizations Vaccine Date Refusal Reason tetanus/diphth/pertuss (Tdap) [...] release of ulnar nerve 2002 Vasectomy 1976 Circumcision4 53 Hernia repair 1auto-populated from documented surgical [id number] from documented surgical [id number] from documented surgical [id number] Social History Social History Type Response Smoking Status Never smoker Assessment and Plan No data available for this section
[2017-04-20 09:25] VITALS: BMI 24.0
--- NOTE | 2017-04-20 10:02 | Cardiology History & Physical ---
History of Present Illness Chief complaint: A Fib HPI: Brian is a 61 year old male who is known to with a history of CAD with Stents to the Mid Cx and Mid LAD 01/2017, nonsustained SVT, PAF, HTN and HLD who had a recent Holter which showed SR, SB, St, HR 53-100, occasional PACs , runs of A Fib with HR in the 180s, rare PVCs. He is admitted to observation for scheduled antiarrhythmic therapy on Sotalol. He is on Eliquis 5mg po BID for stroke prevention. Review of Systems - Constitutional Constitutional: Absent: chills, fatigue, fever(s) - EENMT Eyes: Absent: change in vision Balance: Absent: vertigo Mouth/Throat: Absent: sore throat - Cardiovascular Cardiovascular: Present: palpitations. Absent: chest pain, syncope, dyspnea on exertion Rhythm: Absent: abnormal rhythm - Respiratory Respiratory: Absent: cough, dyspnea, dyspnea on exertion - Gastrointestinal Gastrointestinal: Absent: abdominal pain, constipation, nausea, vomiting - Genitourinary Genitourinary: Absent: dysuria - Integumentary/Breasts Integumentary: Absent: rash - Neurological Neurological: Absent: dizziness - Endocrine Endocrine: Present: palpitations PFSH Patient Stated Medical History Cardiac Arrhythmia Yes Hypertension Yes Myocardial Infarction Yes CAD Yes: Stents Surgical History: Coronary stents:Mid Cx, Mid LAD 01/2016. Carpel tunnel. Knee arthroscopy Family History: Father - [place], age 62, cause of Maternal grandfather - [place], age 64, not cause of Paternal grandfather - [place], age 53, cause of - Social History Smoking status: Never smoker Substance use type: does not use Alcohol intake frequency: does not drink Household members: spouse Current occupational status: employed Current occupation: [employer] Current residence: Apartment/Private Home Medications Home Medications Medication Instructions Recorded Confirmed Type Pantoprazole Sodium 1 tab PO BID #0 03/05/16 04/20/17 History Gluc Randle/Chondro Randle A/Vit C/Mn 1 tab PO DAILY #0 03/11/16 04/20/17 History [Glucosamine Chondroitin Tab] Saw [place] 1 cap PO DAILY #0 03/11/16 04/20/17 History Apixaban [Eliquis] 5 mg PO BID 04/20/17 04/20/17 History Atorvastatin [Lipitor] 1 tab PO HS 04/20/17 04/20/17 History Multivit-Min/Folic Acid/Vit K1 1 tab PO HS 04/20/17 04/20/17 History [Multi For Her 50 Plus Softgel] Allergies Allergy/AdvReac Type Severity Reaction Status Date / Time niacin Allergy Verified 07/12/12 12:11 oxycodone Allergy Verified 07/12/12 12:11 Exam Vital signs: Pulse Rate 67 04/20/17 09:24 Respiratory Rate 18 04/20/17 09:24 Blood Pressure 142/86 H 04/20/17 09:24 Pulse Oximetry 98 04/20/17 09:24 - Constitutional no acute distress, well nourished, cooperative - Routine HEENT Exam Head: Present: normocephalic ENT: Present: mucous membranes moist - Routine Neck Exam Absent: JVD, carotid bruit - Routine Chest/Breast/Axilla Exam Chest wall: Absent: tenderness - Routine Respiratory Exam Present: CTA bilaterally. Absent: rales, wheezes - Routine Cardiovascular Exam Present: RRR, no murmur. Absent: JVD - Routine Abdominal Exam Present: soft, normoactive bowel sounds - Routine Extremities Exam Present: no edema - Routine Skin Exam Present: intact, dry, warm - Routine Neurological Exam Present: alert, oriented X3 - Routine Psychiatric Exam Present: normal affect, normal thought process Results 04/20/17 09:51 04/21/17 03:59 Intake and Output 04/19/17 04/20/17 04/20/17 22:59 06:59 14:59 Intake Total 0 / 0 Balance 0 / 0 Intake: Oral 0 / 0 Other: Weight 158 lb 8.198 oz Patient Weight 04/21/17 06:59 Weight 158 lb 8.198 oz EKG interpretations - EKG EKG results cardiology: sinus rhythm Hospital Course This is a general summary of the patient's hospital course. For more details refer to the complete medical record. Time spent with patient: 25 - 35 minutes DVT Prophylaxis: Eliquis Assessment and Plan - Attestation Attestation Narrative: 04/22/17 14:09 Recommendation After examining the patient I agree with the above assessment. I am involved in the formulation of the patient's plan of care. - Assessment and Plan (1) Paroxysmal atrial fibrillation Status: Chronic recent Holter which showed SR, SB, St, HR 53-100, occasional PACs, runs of A Fib with HR in the 180s, rare PVCs. He is admitted to observation for scheduled antiarrhythmic therapy on Sotalol. He is on Eliquis 5mg po BID for stroke prevention. (2) Atherosclerotic heart disease of [place] coronary artery without angina pectoris Status: Chronic (3) Supraventricular tachycardia Status: Acute nonsustained. rare episodes. (4) Essential (primary) hypertension Status: Chronic Well controlled on current therapy (5) Mixed hyperlipidemia Status: Chronic PCP manages
[2017-04-20] MEDS: SOTALOL 80 MG TABLET PO SCH ×2 (11:14→17:08)
[2017-04-20] MEDS: APIXABAN 5 MG TABLET PO SCH (20:22)
[2017-04-20] MEDS: PANTOPRAZOLE 40 MG TABLET PO SCH (20:22)
[2017-04-20] MEDS ORDERED: MULTI-VITAMIN + MINERAL TABLET PO SCH (21:00)
[2017-04-20] MEDS ORDERED: ATORVASTATIN 40 MG TABLET PO SCH (21:00)
[2017-04-21] MEDS: SOTALOL 80 MG TABLET PO SCH (05:41)
[2017-04-21 05:45] VITALS: BP 146/95; RESP 18; TEMP 96.9; O2SAT 96
[2017-04-21] MEDS ORDERED: LOSARTAN 50 MG TABLET PO SCH (09:00)
[2017-04-21] MEDS ORDERED: GLUCOSAMINE/CHONDROITIN 500 MG/400 MG CAPSULE PO SCH (09:00)
[2017-04-21] MEDS: APIXABAN 5 MG TABLET PO SCH (10:03)
[2017-04-21] MEDS: PANTOPRAZOLE 40 MG TABLET PO SCH (10:06)
[2017-04-21 10:42] VITALS: PULSE 66
[2017-04-22] MEDS ORDERED: LOSARTAN 50 MG TABLET PO SCH (09:00)
== END 2017-04-21 13:51 | disposition home or self-care (01) ==
LOC: SRG
PROVIDERS: ADMIT Internal Medicine Cardiovascular Disease; ATTEND Internal Medicine Cardiovascular Disease